=== PATIENT | male | born 1970 | race Caucasian/White ===

== ENCOUNTER 2021-02-26 12:57 | Outpatient (CLI) | payer MEDICARE, SELFPAY | END 2021-02-26 12:58 | disposition home or self-care (01) | PROVIDERS: PCP Emergency Medicine; Visit Provider Psychiatry & Neurology Neurology | DX: H90.3 Sensorineural hearing loss, bilateral (principal) | CPT/HCPCS: 92557; 92567 ==

== ENCOUNTER 2021-04-02 07:20 | Outpatient (CLI) | payer MEDICARE, SELFPAY ==
[2021-04-02 07:59] LABS: Basophils Absolute Auto 0.1 K/mm3 (0.0-0.1); Basophils Percent Auto 1.3 % (0.2-1.2); Eosinophils Absolute Auto 0.6 K/mm3 (0-0.3); Eosinophils Percent Auto 9.8 % (0-4.4); Hematocrit 37.5 % (42.0-52.0); Hemoglobin 12.3 g/dL (14.0-18.0); Immature Granulocyte Absolute 0.02 K/mm3 (0.00-0.031); Immature Granulocyte Percent A 0.3 % (0-0.5); Lymphocytes Percent Auto 39.2 % (18.3-44.2); Mean Corpuscular HGB Conc 32.8 g/dl (32-36); Mean Corpuscular Hemoglobin 28.9 pg (26-34); Mean Platelet Volume 10.7 fl (7.4-10.4); Monocytes Absolute Auto 0.6 K/mm3 (0.1-0.6); Neutrophils Absolute Auto 2.5 K/mm3 (1.3-6.7); Neutrophils Percent Auto 40.4 % (45.5-73.1); Platelet Count Result 220 k/mm3 (150-375); Red Blood Count 4.26 M/mm3 (4.6-6.20); Red Cell Distribution Width 12.5 % (11.5-14.5); White Blood Count 6.1 K/mm3 (4.5-10.0)
[2021-04-02 08:30] LABS: Alanine Aminotransferase 20 U/L (4-50); Albumin Level 4.5 g/dL (3.5-5.1); Alkaline Phosphatase 74 U/L (38-126); Anion Gap 11 mmol/L (8-16); Aspartate Amino Transferase 30 U/L (17-59); Bilirubin,Total 0.4 mg/dL (0.2-1.3); Blood Urea Nitrogen 24 mg/dL (9-20); Calcium 9.2 mg/dL (8.4-10.2); Carbon Dioxide 27 mmol/L (22-30); Chloride 100 mmol/L (98-107); Cholesterol 217 mg/dL (0-200); Estimated Glomerular Filt Rate > 60; Glucose 97 mg/dL (75-110); HDL Direct 48 mg/dL; Potassium 4.1 mmol/L (3.4-5.0); Sodium 138 mmol/L (137-145); Triglycerides 299 mg/dL (<150)
[2021-04-02 08:41] LABS: LDL Cholesterol Direct 86 mg/dL
[2021-04-02 08:57] LABS: Prostate Specific Antigen 0.3 ng/mL (< OR = 4.0)
== END 2021-04-02 07:21 | disposition home or self-care (01) ==
LOC: ANHLAB 07:23
PROVIDERS: PCP Emergency Medicine; Visit Provider Emergency Medicine
DX: R53.83 Other fatigue (principal); Z12.5 Encounter for screening for malignant neoplasm of prostate; Z13.6 Encounter for screening for cardiovascular disorders; Z13.220 Encounter for screening for lipoid disorders
CPT/HCPCS: 36415; 80053; 80061; 84153; 84443; 85025; G0103

== ENCOUNTER → 2021-05-22 01:05 | Outpatient (CLI) | payer MEDICARE, SELFPAY ==
[2021-05-22 22:45] LABS: SARS-CoV-2 RNA PCR Negative
== END ==
PROVIDERS: PCP Emergency Medicine; Visit Provider Emergency Medicine
DX: R51.9 Headache, unspecified (principal); R05 Cough; R09.89 Other specified symptoms and signs involving the circulatory and respiratory systems; B00.1 Herpesviral vesicular dermatitis; Z20.822 Contact with and (suspected) exposure to COVID-19
CPT/HCPCS: C9803; U0003; U0005

== ENCOUNTER 2021-11-30 17:42 | Observation (INO) | payer MEDICARE, MEDICAID, SELFPAY ==
[2021-11-30] VITALS (26 sets, daily range): BP systolic 137–159; BP diastolic 69–102; PULSE 63–79; RESP 16–20; TEMP 36.4–36.9; O2SAT 97–100; BMI 38.0
--- NOTE | ~2021-11-30 | CT_ITS ---
And less than 5 mm EXAMINATION: CT abdomen pelvis w con DATE: 11/30/2021 21:01 INDICATION: Right upper abdominal mass TECHNIQUE: Computed tomography (CT) of the abdomen and pelvis was performed with 100 mL Omnipaque-350 intravenous contrast. Automated exposure control and iterative reconstruction technique were employe d. The dose-length product was 1468.45 mGy-cm. COMPARISON: None FINDINGS: Mild discoid atelectasis in the lingula and left lower lobe. Heart size is normal. No pericardial or pleural effusion. Small sliding-type hiatal hernia. Prominent dilation the gallbladder which measures 16.3 x 6.1 x 6.6 cm with diffuse edematous wall thickening consistent with acute cholecystitis. 9 mm cyst in the left hepatic lobe. Mild intrahepatic biliary ductal dilation. Common bile duct is normal in caliber measuring 5 mm in maximal diameter. Fatty atrophy of the pancreas most prominent at the u ncinate process. Spleen and bilateral adrenal glands are normal. Bilateral renal cysts measuring 3.7 cm in the right kidney and 5 mm in the lower pole of the left kidney. No bowel obstruction. There is wall thickening along the sigmoid colon without significant surrounding inflammatory stranding and co uld not exclude a mild colitis. The appendix is not visualized. No pericecal inflammatory change to s uggest acute appendicitis. Bladder is normal. Small fat-containing right inguinal hernia. No free int raperitoneal gas or fluid. No pathologically enlarged abdominal or pelvic lymphadenopathy. Small betzaida ngioma at L4. 8 mm sclerotic lesion at the basicervical left femur with appearance suggesting chondro id matrix in an enchondroma. IMPRESSION: 1. Acute cholecystitis. 2. Wall thickening along the distal sigmoid colon without surrounding inflammatory stranding equivoca l for colitis. 3. Small fat-containing right inguinal hernia. 4. 8 mm sclerotic lesion at the proximal left femur with appearance suggestive but not diagnostic of an enchondroma. No other suspicious bone lesions identified. Could consider bone scan for further miroslava luation particularly if patient has any history of prior malignancy. Reviewed, dictated and finalized at location A. E UP IMPRESSION: 1. Acute cholecystitis. 2. Wall thickening along the distal sigmoid colon without surrounding inflammat ory stranding equivocal for colitis. 3. Small fat-containing right inguinal hernia. 4. 8 mm sclerotic lesion at the proximal left femur with appearance suggestive but not diagnostic of an enchondroma. No other suspicious bone lesions identifi ed. Could consider bone scan for further evaluation particularly if patient has any history of prior malignancy.
--- NOTE | ~2021-11-30 | US_ITS ---
EXAMINATION: US abdomen limited EXAM DATE: 12/01/2021 09:38 INDICATION: acute cholecystitis, rule out gallstone. TECHNIQUE: Multiple grayscale and Doppler images of the abdomen right upper quadrant were obtained (b y a technologist who performed the scan) and subsequently reviewed. Correlation is made to CT . FINDINGS: The pancreatic head and body are normal in appearance. The pancreatic tail is not visualized. The l iver has normal echogenicity and contour. There are no focal liver lesions identified. There is no evidence of intrahepatic biliary duct dilation. Portal venous flow was seen in the hepatopedal, nor mal direction and has normal Doppler waveform. No right-sided hydronephrosis. Common bile duct measures 6 mm, which is normal. The gallbladder is distended and there are multiple gallstones. The gallbladder wall is edematous, thickened. Sonographic Prince's sign was demonstrated. No pericholecystic fluid. IMPRESSION: Acute cholecystitis. Cholelithiasis. Reviewed, dictated and finalized at location A. 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
--- NOTE | ~2021-11-30 | XR_ITS ---
EXAMINATION: XR cholangiogram surg 1st inj DATE: 12/01/2021 14:48 INDICATION: Laparoscopic cholecystectomy TECHNIQUE: 75 fluoroscopic images of the right upper quadrant were obtained during intraoperative cho langiography performed by the surgeon. I was not present in the operating room. Fluoroscopy exposure time was 15.9 seconds. COMPARISON: None. FINDINGS: No stricture or filling defect of the common bile duct is identified. The common bile duct appears to be normal in caliber. IMPRESSION: 1. No stricture or filling defect identified in the common bile duct. This was communicated to Dr. Cindy etienne in the operating room at 1443 hours on 12/01/2021. Reviewed, dictated and finalized at location B. SLIDE MACHINE SETTER IMPRESSION: 1. No stricture or filling defect identified in the common bile duct. This was communicated to Dr. Miller in the operating room at 1443 hours on 12/01/2021.
[2021-11-30 18:01] LABS: Basophils Absolute Auto 0.1 K/mm3 (0.0-0.1); Basophils Percent Auto 0.4 % (0.2-1.2); Eosinophils Absolute Auto 0.1 K/mm3 (0-0.3); Eosinophils Percent Auto 0.3 % (0-4.4); Hematocrit 44.4 % (42.0-52.0); Hemoglobin 14.6 g/dL (14.0-18.0); Immature Granulocyte Absolute 0.05 K/mm3 (0.00-0.031); Immature Granulocyte Percent A 0.3 % (0-0.5); Lymphocytes Percent Auto 6.5 % (18.3-44.2); Mean Corpuscular HGB Conc 32.9 g/dl (32-36); Mean Corpuscular Hemoglobin 29.2 pg (26-34); Mean Corpuscular Volume 88.8 fl (80-100); Mean Platelet Volume 10.8 fl (7.4-10.4); Monocytes Percent Auto 6.4 % (2.6-8.5); Neutrophils Absolute Auto 13.2 K/mm3 (1.3-6.7); Neutrophils Percent Auto 86.1 % (45.5-73.1); Platelet Count Result 270 k/mm3 (150-375); Red Cell Distribution Width 13.2 % (11.5-14.5); White Blood Count 15.4 K/mm3 (4.5-10.0)
[2021-11-30 20:29] LABS: Alanine Aminotransferase 21 U/L (4-50); Alkaline Phosphatase 103 U/L (38-126); Anion Gap 8 mmol/L (8-16); Aspartate Amino Transferase 26 U/L (17-59); Bilirubin,Total 0.8 mg/dL (0.2-1.3); Blood Urea Nitrogen 16 mg/dL (9-20); Calcium 9.1 mg/dL (8.4-10.2); Carbon Dioxide 27 mmol/L (22-30); Chloride 102 mmol/L (98-107); Estimated CRCL calculation 135 ml/min; Estimated Glomerular Filt Rate > 60; Glucose 122 mg/dL (65-110); Lipase 53 U/L (23-300); Potassium 4.1 mmol/L (3.4-5.0); Sodium 137 mmol/L (137-145)
--- NOTE | 2021-11-30 20:31 | ED.ABDPAIN ---
HPI - Abdominal Pain General Chief Complaint: Abdominal Pain Stated Complaint: abdominal pain Time Seen by Provider: 11/30/21 20:07 Source: patient and RN notes reviewed Mode of arrival: ambulatory Limitations: no limitations History of Present Illness HPI narrative: This is a 51 year old male who presents for evaluation of right upper abdominal pain. Patient states he woke up with pain 4 am this morning. His pain is located across his upper abdomen and it worsened when he twisted. He states he felt a tender knot to right upper abdomen since stretching. His pain has been constant and it radiates to his back. He denies associated nausea, vomiting, fever or chills. He has noticed dark color urine but denies dysuria. He denies having gallbladder disease or having similar pain in the past. His pain is 10/10. He takes oxycodone 5 mg for chronic back and left leg pain. Related Data Home Medications Medication Instructions Recorded Confirmed acetaminophen 500 mg tablet See Rx Instructions .ROUTE .COMPLEX 02/09/21 08/17/21 aspirin 81 mg tablet,delayed 81 mg PO DAILY 02/09/21 12/01/21 release oxycodone-acetaminophen 1 tablet PO QID PRN 12/01/21 12/01/21 Allergies Allergy/AdvReac Type Severity Reaction Status Date / Time ibuprofen Allergy Unknown UNKNOWN Verified 09/15/21 13:49 duloxetine Allergy Unknown Verified 09/15/21 13:49 naproxen Allergy Unknown Verified 09/15/21 13:49 Review of Systems Review of Systems: All systems reviewed & are unremarkable except as noted in HPI and below PMFSH Past Medical History Medical History (Updated 12/01/21 @ 06:06 by Rosalia Perdomo MD) Blurred vision Cataract (~2012) Cataracts, bilateral Chicken pox Chronic back pain Surgical History Surgical History H/O knee surgery (~1994) H/O knee surgery (~2012) History of ankle surgery (~1996) History of appendectomy (~1979) Family History Family History Father No problems noted. Mother No problems noted. Mother Family history of thyroid disease Father Family history of type 2 diabetes mellitus Other Cerebrovascular accident Diabetes mellitus Family history of alcoholism Hypertension Social History Social History Social History: Patient Drinks 1 can of soda daily. Smoking status: Never smoker Smoking end date: 09/25/00 Alcohol intake: never Substance use: never Substance use type: does not use Additional occupation/education comments: [employer] Gender identity (if verbalized by the patient): Male Spiritual care concerns: No Exam Const: General: alert Nutritional Appearance: obese Orientation/consciousness: patient oriented x3 Eyes: EOM: EOMs intact bilaterally Resp: Effort & Inspection: normal respiratory effort and no retractions Auscultation: clear to auscultation bilaterally GI: Inspection: distended GI Palp: Yes Soft to palpation, Yes Tenderness to palpation present (GI), Yes Guarding due to palpation present (GI), No Rigid due to palpation and Yes Palpable mass present (right upper abdomen) Auscultation: normal bowel sounds : General: Yes no CVA tenderness Skin: General skin exam: normal color Rashes: no rashes Neuro: General: patient oriented x3, moves all extremities and CN's II-XI intact bilaterally Extrem: General: normal to inspection Psych: Mental Status: mental status grossly normal Affect: normal affect Course Reevaluation(s) Reevaluation #1: I discussed with patient findings of acute cholecystitis and he will be admitted and started on antibiotics. Date: 12/01/21 Time: 22:00 Consultations Consultation #1: I Discussed case with Dr. Miller. He agrees to admit patient to his service for acute cholecystitis. Will order US for am. He states to place pat
[2021-11-30] MEDS: SODIUM CHLORIDE 0.9% IV 1,000 ML 999 ML IV CONT (20:33)
[2021-11-30] MEDS: ONDANSETRON INJ 4 MG/2 ML VIAL IV PUSH (20:33)
[2021-11-30] MEDS: HYDROmorphone HCL INJ (*CRX) 1 MG/ML SYR IV PUSH ×2 (20:33→21:45)
[2021-11-30 21:23] LABS: Add Urine Microscopic? YES; Appearance Urine Clear (Clear); Bilirubin Urine Negative (Negative); Blood Urine 2+ (Negative); Color Urine Yellow (Yellow); Glucose Urine UA Negative (Negative); Ketones Urine Trace mg/dL (Negative); Leukocyte Esterase Ur Negative LEU/UL (Negative); Mucus Urine Rare /lpf; Nitrate Urine Negative (Negative); Protein Urine Negative (Negative); Squamous Epithelial Cell Urine Rare /hpf (Few); Urobilinogen Urine Negative mg/dL (<2.0); WBC Urine 0-3 /hpf
[2021-11-30 21:24] LABS: Specific Grav Ur 1.043 (1.001-1.035)
[2021-11-30] MEDS: SODIUM CHLORIDE 0.9% IV 1,000 ML 125 ML IV CONT (22:41)
[2021-11-30] MEDS: MORPHINE SULFATE (*CRX) 4 MG/ML INJ 6 MG IV PUSH (22:45)
[2021-11-30 23:06] LABS: SARS-CoV-2 RNA PCR Negative
[2021-12-01] VITALS (12 sets, daily range): BP systolic 114–144; BP diastolic 71–92; PULSE 68–99; RESP 12–21; TEMP 36.5–37; O2SAT 93–100; BMI 38.0
--- NOTE | 2021-12-01 00:26 | ADMGEN ---
This patient, Leia Jimenez Sr., was admitted to 3 Med Surg Room 317-01. Patient/family oriented to hospital policies and general routines including ID bracelet, bed and alarms, visiting hours, pain management, procedures, bathroom and other care routines, personal items, smoking policy, room service/diet, and visiting hours. Information on how to activate the Rapid Response Team has been discussed. Patient/Family are encouraged to report perceived risks to care and to ask questions if they do not understand what they are told or what they should do.
[2021-12-01] MEDS: MORPHINE SULFATE (*CRX) 4 MG/ML INJ 6 MG IV PUSH ×5 (01:03→09:50)
[2021-12-01] MEDS: MELATONIN 5 MG TABLET PO ×2 (01:03→20:08)
[2021-12-01] MEDS: SODIUM CHLORIDE 0.9% IV 1,000 ML 125 ML IV CONT (06:27)
[2021-12-01 06:31] LABS: Alanine Aminotransferase 199 U/L (4-50); Alkaline Phosphatase 99 U/L (38-126); Anion Gap 6 mmol/L (8-16); Aspartate Amino Transferase 284 U/L (17-59); Basophils Percent Auto 0.4 % (0.2-1.2); Blood Urea Nitrogen 10 mg/dL (9-20); Calcium 8.1 mg/dL (8.4-10.2); Carbon Dioxide 26 mmol/L (22-30); Chloride 103 mmol/L (98-107); Eosinophils Absolute Auto 0.2 K/mm3 (0-0.3); Eosinophils Percent Auto 2.2 % (0-4.4); Estimated CRCL calculation 119 ml/min; Estimated Glomerular Filt Rate > 60; Glucose 128 mg/dL (65-110); Hematocrit 39.7 % (42.0-52.0); Hemoglobin 13.2 g/dL (14.0-18.0); Immature Granulocyte Absolute 0.03 K/mm3 (0.00-0.031); Immature Granulocyte Percent A 0.3 % (0-0.5); Lipase 47 U/L (23-300); Lymphocytes Absolute Auto 0.71 K/mm3 (0.9-3.2); Mean Corpuscular HGB Conc 33.2 g/dl (32-36); Mean Corpuscular Hemoglobin 29.2 pg (26-34); Mean Corpuscular Volume 87.8 fl (80-100); Monocytes Absolute Auto 1.1 K/mm3 (0.1-0.6); Monocytes Percent Auto 12.4 % (2.6-8.5); Neutrophils Absolute Auto 6.8 K/mm3 (1.3-6.7); Neutrophils Percent Auto 76.7 % (45.5-73.1); Platelet Count Result 199 k/mm3 (150-375); Potassium 3.5 mmol/L (3.4-5.0); Red Blood Count 4.52 M/mm3 (4.6-6.20); Red Cell Distribution Width 13.1 % (11.5-14.5); Sodium 135 mmol/L (137-145); White Blood Count 8.9 K/mm3 (4.5-10.0)
--- NOTE | 2021-12-01 07:53 | PM.IMHP ---
H&P: HPI History of Present Illness Date/Time: 12/01/21 07:53 This is a 51 y/o White male who presented last evening at the [facility] for evaluation of right upper quadrant abdominal pain. Patient states he woke up with the abdominal pain at4 am in the morning on 11/30. His pain was located across his upper abdomen and it worsened when he twisted. He states he felt a tender knot in the right upper abdomen since stretching. he states today to me that this is still where his pain is and it is very tender to touch. (CT scan with workup in the ED did show apparent hydrops of the gallbladder with thickening of the wall.) His pain has been constant Since it started and it radiates to his right mid back. He denies associated nausea, vomiting, fever or chills. He has noticed dark color urine but denies dysuria. He admits now to having similar pain in the past. states he had 1 episode in August and went to [facility] with this. ( Review of his outpatient chart this morning reveals that the CT scan at [facility] did suggest hydrops of the gallbladder but did not come right out and say that he had gallstones. It did however recommend an outpatient ultrasound which has not been done that I can see. Patient also states that he has not had any further workup for that episode). in the ER last night his his pain was 10/10. he now states that it has improved some but does not completely go away with periodic morphine injections. He takes oxycodone 5 mg for chronic back and left leg pain Now at home and states that he does see a pain medicine doctor in [place] for problems with L5-S1 and resultant sciatica leading to a left foot drop. Chief Complaint: upper abdominal pain Review of Systems Review of Systems: All systems reviewed & are unremarkable except as noted in HPI and below (HPI) Constitutional: Constitutional: Reports as per HPI, Denies chills and Denies fever(s) Eyes: Eyes: Reports no additional eye complaints ENT: Reports Normal hearing present and Denies dizziness Cardiovascular: Cardiovascular: Reports no additional cardiovascular complaints, Denies chest pain and Denies irregular heart rhythm Respiratory: Respiratory: Reports no additional respiratory complaints Gastrointestinal: Gastrointestinal: Reports as per HPI Comments: Patient relates to previous episodes of similar pain has now which were short-lived 2-3 hours in duration. Genitourinary: Genitourinary: Denies hematuria Musculoskeletal: Musculoskeletal: Denies back pain Comments: Pt has issues with his Lt. leg. 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 Integumentary/Breasts: Skin/Breast: Reports system reviewed and no additional complaints, except as docu Neurologic: Reports Normal hearing present, Denies Abnormal speech present, Denies confusion, Denies dizziness and Reports radicular pain ( Left-sided sciatica come) Comments: patient has anterior tibial muscle wasting and footdrop on the left Psychiatric: Psychiatric: Reports no additional psychiatric complaints and Denies confusion Comments: apparently had swelling and some nausea associated with Cymbalta ( this is on his allergy list). Endocrine: Endocrine: Reports no additional endocrine complaints Hematologic/Lymphatic: Hematologic/Lymphatic: Denies easy bleeding and Denies easy bruising Allergic/Immunologic: Allergic/Immunologic: Reports no additional allergic/immunologic complaints PMF Past Medical History Medical History Blurred vision Cataract (~2012) Cataracts, bilateral Chicken pox Chronic back pain Surgical History Surgical History H/O knee surgery (~1994) H/O knee surgery (~2012) History of ankle surgery (~1996) History of appendectomy (~1979) Family History Family History (Updated 12/01/21 @ 09:27 by Shahriar Miller MD) Father Cholecystitis
[2021-12-01] MEDS: CHLORHEXIDINE GLUCONATE 4% SOL 120 ML BTL 1 APPLIC TOPICAL (11:07)
--- NOTE | 2021-12-01 11:52 | WPDANESEPPF ---
Anes - Initial Pre Proc Eval Procedure: Operation Date: 12/01/21 13:00 Proposed Procedures p Laparoscopic Cholecystectomy, Possible Intra Operative Cholangiogram - Shahriar Miller MD Date/Time: 12/01/21 11:52 Surgeon: Shahriar Miller MD Pre Op Diagnosis: acute cholecystitis Patient Data Age: 51 Gender: M Height: 1.75 m Weight: 116.7 kg Last Vital Signs Temp 36.5 C 12/01/21 05:50 Pulse 83 12/01/21 05:50 Resp 16 12/01/21 05:50 BP 137/85 12/01/21 05:50 Pulse Ox 100 12/01/21 05:50 Allergies Allergy/AdvReac Type Severity Reaction Status Date / Time ibuprofen Allergy Unknown UNKNOWN Verified 09/15/21 13:49 duloxetine Allergy Unknown Verified 09/15/21 13:49 naproxen Allergy Unknown Verified 09/15/21 13:49 Home Medications Medication Instructions Recorded Confirmed Type acetaminophen 500 mg tablet See Rx Instructions .ROUTE .COMPLEX 02/09/21 08/17/21 History aspirin 81 mg tablet,delayed 81 mg PO DAILY 02/09/21 12/01/21 History release oxycodone-acetaminophen 1 tablet PO QID PRN 12/01/21 12/01/21 History Laboratory Tests 11/30/21 11/30/21 11/30/21 17:55 20:15 21:10 WBC 15.4 K/mm3 H K/mm3 (4.5-10.0) RBC 5.00 M/mm3 M/mm3 (4.6-6.20) Hgb 14.6 g/dL g/dL (14.0-18.0) Hct 44.4 % % (42.0-52.0) MCV 88.8 fl fl (80-100) MCH 29.2 pg pg (26-34) MCHC 32.9 g/dl g/dl (32-36) RDW 13.2 % % (11.5-14.5) Plt Count 270 k/mm3 k/mm3 (150-375) MPV 10.8 fl H fl (7.4-10.4) Immature Gran % (Auto) 0.3 % % (0-0.5) Neut % (Auto) 86.1 % H % (45.5-73.1) Lymph % (Auto) 6.5 % L % (18.3-44.2) [place] % (Auto) 6.4 % % (2.6-8.5) Eos % (Auto) 0.3 % % (0-4.4) Baso % (Auto) 0.4 % % (0.2-1.2) Lymph # (Auto) 1.00 K/mm3 K/mm3 (0.9-3.2) [place] # (Auto) 1.0 K/mm3 H K/mm3 (0.1-0.6) Eos # (Auto) 0.1 K/mm3 K/mm3 (0-0.3) Baso # (Auto) 0.1 K/mm3 K/mm3 (0.0-0.1) Abs Immat Gran (auto) 0.05 K/mm3 H K/mm3 (0.00-0.031) Absolute Neuts (auto) 13.2 K/mm3 H K/mm3 (1.3-6.7) Absolute Nucleated RBC 0.0 K/mm3 K/mm3 (0.0-0.012) Nucleated RBC % 0.0 % % (0.0-0.2) Sodium 137 mmol/L mmol/L (137-145) Potassium 4.1 mmol/L mmol/L (3.4-5.0) Chloride 102 mmol/L mmol/L (98-107) Carbon Dioxide 27 mmol/L mmol/L (22-30) Anion Gap 8 mmol/L mmol/L (8-16) BUN 16 mg/dL mg/dL (9-20) Creatinine 0.70 mg/dL mg/dL (0.7-1.3) Estim Creat Clear Calc 135 ml/min ml/min Estimated GFR > 60 (59 - ) Glucose 122 mg/dL H mg/dL (65-110) Calcium 9.1 mg/dL mg/dL (8.4-10.2) Total Bilirubin 0.8 mg/dL mg/dL (0.2-1.3) AST 26 U/L U/L (17-59) ALT 21 U/L U/L (4-50) Alkaline Phosphatase 103 U/L U/L (38-126) Total Protein 8.0 g/dL g/dL (6.3-8.2) Albumin 5.0 g/dL g/dL (3.5-5.1) Lipase 53 U/L U/L (23-300) Urine Color Yellow (Yellow) Urine Appearance Clear (Clear) Urine pH 6.0 (5.0-9.0) Ur Specific [place] 1.043 H (1.001-1.035) Urine Protein Negative mg/dL mg/dL (Negative) Urine Glucose (UA) Negative mg/dL mg/dL (Negative) Urine Ketones Trace mg/dL mg/dL (Negative) Ur Blood (Man) 2+ H (Negative) Urine Nitrate Negative (Negative) Urine Bilirubin Negative (Negative) Urine Urobilinogen Negative mg/dL mg/dL (<2.0) Leukocyte Esterase Rfl Negative KEVIN/UL KEVIN/UL (Negative) Urine RBC 11-20 /hpf H /hpf (0-2) Urine WBC 0-3 /hpf /hpf Ur Squamous Epith Cells Rare /hpf /hpf (Few) Urine Mucus Rare /lpf /lpf SARS-CoV-2 R
--- NOTE | 2021-12-01 11:53 | PC.NURSE ---
1150 off floor for surgery.
--- NOTE | 2021-12-01 12:26 | WPDHPUPDATE1 ---
History and Physical Update Update Date/Time: 12/01/21 12:26 History and Physical has been reviewed, including an updated exam of the patient. There are NO changes in the patient's condition. Risks, benefits, and alternatives have been discussed and questions answered. Patient agrees to proceed with procedure.
[2021-12-01] MEDS: LACTATED RINGERS 1,000 ML 30 ML IV CONT ×2 (12:33→16:29)
--- NOTE | 2021-12-01 16:47 | W.PM.PROC2 ---
Procedure Note - Detailed Date of Procedure 12/01/21 Pre-op Diagnosis 1. acute cholecystitis with cholelithiasis 2. A symptomatic right inguinal hernia Post-op Diagnosis Same Procedure Performed Laparoscopic cholecystectomy with intraoperative cholangiogram Surgeon Shahriar Miller MD Drill Sergeant Antonieta MASTERSON.OR Ticket Printer And Tagger Anesthesia General Indications Please see admission history and physical. This outlines the indications well. Patient developed severe epigastric and right upper quadrant pain approximately 36 hours prior to OR. He had a CT scan suggesting acute cholecystitis but no mention of cholelithiasis. This morning he had a ultrasound confirming acute cholecystitis with cholelithiasis. Therefore, the risks benefits possible complications of a laparoscopic cholecystectomy with intraop cholangiogram since his liver function tests also went up some were discussed with him and his and they seemed understand wished to proceed. Findings Very large acutely inflamed gallbladder with suspected hydrops. Description of Procedure Procedure Details: Patient was seen preoperatively in the holding area and risks, benefits and alternatives confirmed. Patient was taken to the operating room and general anesthesia was induced. A time out was then preformed with the surgery team confirming patient and site of surgery. The abdomen was prepped and draped in the usual sterile fashion. Incision was made just at beth upper end of the umbilicus transversely to expose a small 5 mm fascial defect. Two stay sutures of O- Vicryl were used to elevate the mid-line fascia beneath the umbilicus and a small incision was made under direct vision. The peritoneum was entered. The 12 mm Reveles cannula was introduced under direct vision into the preitoneum. First under low flow and then under high flow the abdomen was insufflated with carbon dioxide never exceeding a pressure of 14. Three 5 mm trocars were then introduced under direct vision. The following trocars were introduced under direct vision: a 12 mm in the epigastrium and two 5 mm trocars along the right costal margin. There were significant adhesions of the omentum to the underside of the gallbladder and to the anterior abdominal wall just inferior to the gallbladder. These were taken down with blunt and sharp dissection. Bovie cautery was used for hemostasis. Because the gallbladder was so enlarged prior to doing much else we used a long trocar needle and I punctured the gallbladder on his upper and and suction 15 cc of light yellow bile from the gallbladder that was sent for culture (Gram stain, aerobic & anaerobic C&S) The gall bladder was then grasped and the cystic duct and artery were dissected free and I carefully identified a window of safety with only two other structures in the area being the cystic duct and the cystic artery. It should be mentioned that the time it took to get to this visualization was least an hour of dissection through difficult circumstances with difficult visualization and dissection through somewhat inflamed edematous tissues. Structures however were able to be visualized well by the end of the dissection. I then used a 10 mm endo-clip steam trap man to place 2 clips on the patient's side 1 on the gallbladder side on the cystic artery and just one clip on the gallbladder side of the cystic duct. A small hole was made in the cystic duct with endoshears and a cholagio-cath introduced. This was held in place with a single 10 mm clip. A cholangiogram was obtained revealing free flow into the cystic duct, common bile duct, common hepatic, right and left hepatic ducts with free flow into the duodenum with no filling defects in the intra nor extrahepatic biliary tree and no dilation. The catheter was removed and the cystic duct was clipped with a 10 mm endoclip-steam trap man placing 2 clips on the patient's side of the cystic duct. The cystic duct was then transected. The cystic artery was also transected a
[2021-12-01] MEDS: fentaNYL CITRATE INJ (*CRX) 100 MCG/2 ML VIAL 25 MCG IV PUSH ×3 (17:07→17:30)
--- NOTE | 2021-12-01 18:03 | PC.NURSE ---
1800 pt back in room via bed from surgery.
[2021-12-01] MEDS: oxyCODONE HCL (*CRX) 5 MG TAB IR 10 MG PO (18:50)
[2021-12-01] MEDS: SENNA/DOCUSATE SODIUM TABLET 2 TAB PO (20:08)
[2021-12-01] MEDS: BENZOCAINE/MENTHOL (*BKC) 18 EA LOZENGE 1 LOZENGE PO (21:11)
[2021-12-02] MEDS: oxyCODONE HCL (*CRX) 5 MG TAB IR 10 MG PO ×3 (00:10→11:40)
[2021-12-02 02:17] VITALS: O2SAT 95
[2021-12-02 03:47] VITALS: BP 121/74; PULSE 80; RESP 18; TEMP 36.6; O2SAT 93
[2021-12-02] MEDS: SODIUM CHLORIDE 0.9% IV 1,000 ML 75 ML IV CONT (04:55)
[2021-12-02 06:04] LABS: Hematocrit 37.3 % (42.0-52.0); Hemoglobin 12.1 g/dL (14.0-18.0); Mean Corpuscular HGB Conc 32.4 g/dl (32-36); Mean Corpuscular Hemoglobin 28.7 pg (26-34); Mean Corpuscular Volume 88.6 fl (80-100); Mean Platelet Volume 11.3 fl (7.4-10.4); Platelet Count Result 202 k/mm3 (150-375); Red Blood Count 4.21 M/mm3 (4.6-6.20); Red Cell Distribution Width 13.1 % (11.5-14.5); White Blood Count 10.8 K/mm3 (4.5-10.0)
[2021-12-02 06:08] LABS: Alanine Aminotransferase 244 U/L (4-50); Albumin Level 4.1 g/dL (3.5-5.1); Alkaline Phosphatase 125 U/L (38-126); Anion Gap 7 mmol/L (8-16); Aspartate Amino Transferase 156 U/L (17-59); Bilirubin,Total 1.1 mg/dL (0.2-1.3); Blood Urea Nitrogen 11 mg/dL (9-20); Calcium 8.9 mg/dL (8.4-10.2); Carbon Dioxide 27 mmol/L (22-30); Chloride 104 mmol/L (98-107); Estimated CRCL calculation 106 ml/min; Estimated Glomerular Filt Rate > 60; Glucose 118 mg/dL (65-110); Potassium 3.9 mmol/L (3.4-5.0); Sodium 138 mmol/L (137-145)
[2021-12-02 07:47] VITALS: BP 130/84; PULSE 83; RESP 19; TEMP 36.4; O2SAT 94
[2021-12-02 08:33] VITALS: O2SAT 96
--- NOTE | 2021-12-02 09:27 | PM.DS ---
DS: Admitting Diagnosis Discharge Date 12/02/2021 Admitting Diagnosis acute cholecystitis with cholelithiasis DS: Discharge Diagnosis Discharge Diagnosis (1) Cholecystitis, acute with cholelithiasis: Onset Date: ~11/2021 Code(s): K80.00 - Calculus of gallbladder with acute cholecystitis without obstruction Status: Acute Assessment and Plan: This was the main reason for the patient's admission. Ultrasound confirmed acute cholecystitis with cholelithiasis. He was taken to the operating room the day this was discovered for urgent cholecystectomy. Cholangiogram was performed because of elevated liver function tests and the possibility of a stone passing into the common duct. IOC was negative for any common duct stones. Because of his acute infection culture was sent when we aspirated bile from the gallbladder at the time of surgery. Results of this C&S are still not back. Patient is recovering well postop day 1 and will be seen in the office in 2 weeks. He received several doses of IV antibiotics following the procedure and is afebrile so I am not planning to continue any a antibiotics upon discharge. (2) Chronic back pain: Onset Date: Unknown Code(s): M54.9 - Dorsalgia, unspecified; G89.29 - Other chronic pain Status: Acute Assessment and Plan: Patient has apparently had a chronic issue with the L5-S1 this level with a chronic left footdrop. He has seen pain clinic physician for this continuing chronic pain. He and I agreed that we would double the dose of his oxycodone / acetaminophen for 3 days then dropped back to what he usually takes which is 1 5/325 oxycodone/acetaminophen once every 6 hours for his sciatica and low back pain. He will then follow up with his pain medicine doctor for continued care. (3) Anxiety: Onset Date: Unknown Code(s): F41.9 - Anxiety disorder, unspecified Status: Acute Assessment and Plan: Patient was on pain medications throughout his stay here in the hospital. He did not specifically display any serious episodes of anxiety during his hospital stay. He will resume any medications that he was on for this as an outpatient. (4) Right inguinal hernia: Onset Date: ~11/30/21 Code(s): K40.90 - Unilateral inguinal hernia, without obstruction or gangrene, not specified as recurrent Status: Acute Assessment and Plan: This was small and asymptomatic. This was noted as a incidental finding on his CT scan of the abdomen and pelvis at the time of his ED visit. Will discuss this more with him on the postop visit. DS: Summary Hospital Course Reason for hospitalization: Acute cholecystitis with cholelithiasis and abdominal pain Hospital Course: The acute cholecystitis with cholelithiasis was the main reason for the patient's admission. Ultrasound confirmed acute cholecystitis with cholelithiasis. He was taken to the operating room the day this was discovered for urgent cholecystectomy. Cholangiogram was performed because of elevated liver function tests and the possibility of a stone passing into the common duct. IOC was negative for any common duct stones. Because of his acute infection culture was sent when we aspirated bile from the gallbladder at the time of surgery. Results of this C&S are still not back. Patient is recovering well postop day 1 and will be seen in the office in 2 weeks. He received several doses of IV antibiotics following the procedure and is afebrile so I am not planning to continue any a antibiotics upon discharge. Status at Discharge Cognitive/behavioral status at discharge: normal Functional status at discharge: independent ambulation Overall status at discharge: patient is not back to baseline ( He will need to be cautious with core body exercises and any straining x8 weeks.) Time Spent with Patient Time attestation: Total time spent providing and/or coordinating discharge services: Time
--- NOTE | 2021-12-02 10:11 | WPDANESPN ---
Anes - Prog Note Post-Op Date/Time: 12/02/21 10:11 Cardiovascular status: normal Respiratory status: normal Airway patency: baseline Mental status: baseline Post-Op hydration status: normal Vital Signs: Last Vital Signs Temp 36.4 C L 12/02/21 07:47 Pulse 83 12/02/21 07:47 Resp 19 12/02/21 07:47 BP 130/84 12/02/21 07:47 Pulse Ox 96 12/02/21 08:33 Pain Score (VAS): 0 I/O: Intake & Output 12/01/21 12/02/21 12/02/21 23:59 07:59 15:59 Intake Total 1999 950 120 Balance 1999 950 120 Laboratory Tests 12/02/21 05:32 12/02/21 05:32 12/02/21 12/02/21 05:32 05:32 WBC 10.8 H RBC 4.21 L Hgb 12.1 L Hct 37.3 L MCV 88.6 MCH 28.7 MCHC 32.4 RDW 13.1 Plt Count 202 MPV 11.3 H Sodium 138 Potassium 3.9 Chloride 104 Carbon Dioxide 27 Anion Gap 7 L BUN 11 Creatinine 0.90 Estim Creat Clear Calc 106 Estimated GFR > 60 Glucose 118 H Calcium 8.9 Total Bilirubin 1.1 AST 156 H ALT 244 H Alkaline Phosphatase 125 Total Protein 7.0 Albumin 4.1 Post-procedural complaints: none Patient Feedback: Patient satisfied with anesthetic care.
== END 2021-12-02 12:32 | disposition home or self-care (01) ==
LOC: ANHED 21:03 → ANH3MEDSUR 23:10
PROVIDERS: Emergency Medicine; Admitting Provider Surgery; Emergency Provider General Practice; Visit Provider Surgery
PROC: 0FT44ZZ Resection of Gallbladder, Percutaneous Endoscopic Approach (ICD-10-PCS; CPT 47562; principal; 2021-12-01 13:00)
DX: K80.12 Calculus of gallbladder with acute and chronic cholecystitis without obstruction (principal); M54.9 Dorsalgia, unspecified; M79.605 Pain in left leg; G89.29 Other chronic pain; F41.9 Anxiety disorder, unspecified; F11.20 Opioid dependence, uncomplicated; K40.90 Unilateral inguinal hernia, without obstruction or gangrene, not specified as recurrent; Z20.822 Contact with and (suspected) exposure to COVID-19
CPT/HCPCS: 47563; 36415; 74177; 74300; 76705; 80053; 81001; 83690; 85025; 85027; 87070; 87075; 87205; 88304; 96361; 96365; 96366; 96367; 96375; 96376; 99285; A9270; C1713; C9803; G0378; J0131; J1100; J1170; J2250; J2270; J2405; J2543; J2704; J2710; J3010; J7030; J7120; Q9966; Q9967; U0003; U0005

== ENCOUNTER 2021-12-04 10:14 | Inpatient (IN) | payer MEDICARE, MEDICAID, SELFPAY ==
[2021-12-04] VITALS (13 sets, daily range): BP systolic 132–168; BP diastolic 86–110; PULSE 76–104; RESP 15–22; TEMP 36.5–37.4; O2SAT 92–100; BMI 38.7
--- NOTE | ~2021-12-04 | XR_ITS ---
EXAMINATION: XR chest 2V DATE: 12/04/2021 10:40 INDICATION: Epigastric abdominal pain. Constipation. TECHNIQUE: Frontal and lateral views of the chest were obtained. COMPARISON: CT abdomen and pelvis 11/30/2021 FINDINGS: The lung volumes are small. There is mild atelectasis at the lung bases. No pleural effusio n or pneumothorax. The heart size is normal. Surgical clips in the right upper quadrant are likely fr om cholecystectomy. IMPRESSION: 1. Small lung volumes with mild atelectasis at the lung bases. Reviewed, dictated and finalized at location A. E CARE NURSE
--- NOTE | ~2021-12-04 | CT_ITS ---
EXAMINATION: CT guide absc cath placement DATE: 12/04/2021 16:08 INDICATION: Right upper quadrant abscess. TECHNIQUE: The procedure including the risks, benefits, and alternatives was discussed with the patie nt. Risks discussed included bleeding and infection. The patient understood the risks and benefits an d agreed to proceed. The skin overlying the abdomen was prepped and draped in usual sterile fashion. Anesthetic was administered with 1% lidocaine subcutaneously. An 18 gauge trochar needle was inserte d into the right upper quadrant abscess with CT guidance. The needle was exchanged over a wire for 6 Australian, 8 Australian, and 9 Australian dilators and then for an 8.5 Australian pigtail catheter. The catheter was stitched to the skin, and a sterile dressing was applied. The mA was adjusted according to patient s ize. Iterative reconstruction technique was employed. The dose-length product was 364.38 mGy-cm. Ther e were no immediate complications. FINDINGS: CT images demonstrate the catheter within the right upper quadrant abscess. 10 mL fluid was aspirated for testing. IMPRESSION: 1. Successful CT-guided right upper quadrant abscess drainage. 2. 10 mL reddish bile was sent for aerobic and anaerobic cultures. Reviewed, dictated and finalized at location A. 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
--- NOTE | ~2021-12-04 | CT_ITS ---
EXAMINATION: CT abdomen pelvis w con DATE: 12/04/2021 11:33 INDICATION: Epigastric abdominal pain. Postop. TECHNIQUE: Computed tomography (CT) of the abdomen and pelvis was performed with 100 mL Omnipaque 350 intravenous contrast. Automated exposure control and iterative reconstruction technique were employe d. The dose-length product was 1738.56 mGy-cm. COMPARISON: CT abdomen and pelvis 11/30/2021 FINDINGS: The visualized portions of the lung bases demonstrate atelectasis in all lobes, worst in th e lower lobes. No pleural effusion. The heart size is normal. No pericardial effusion. There are cyst s in the liver measuring up to 9 mm. There are changes of cholecystectomy. The spleen, pancreas, and adrenal glands are normal. There are cysts in the kidneys measuring up to 3.5 cm on the right. There is a right inguinal hernia containing fat. There are no dilated loops of bowel. There is fat strandin g and soft tissue gas at the umbilicus, consistent with recent surgery. There is an 8.2 x 4.7 cm flui d collection in the gallbladder fossa. There is a 5.7 x 3.8 cm fluid collection medial to the caudate lobe of the liver with mass effect on the liver. There are no pathologically enlarged lymph nodes. T here is mild thoracolumbar spondylosis. There is a 9 mm nonaggressive lytic lesion in left femoral ne ck with sclerotic margin, likely benign. IMPRESSION: 1. Fluid collections in the gallbladder fossa and medial to the caudate lobe of the liver suspicious for bile leak. Consider hepatobiliary scintigraphy. Reviewed, dictated and finalized at location A. ORT STATION SUPERVISOR
--- NOTE | ~2021-12-04 | XR_ITS ---
EXAMINATION: XR ERCP DATE: 12/06/2021 16:34 INDICATION: Bile leak. TECHNIQUE: 11 spot fluoroscopic images of the right upper quadrant were obtained during endoscopic re trograde cholangiopancreatography (ERCP). Fluoroscopy exposure time was 299. COMPARISON: CT 12/04/2021 FINDINGS: There is an endoscope with tip in the second portion the duodenum. There are surgical clips from cholecystectomy. Contrast injection demonstrates leakage into the gallbladder fossa. There is p lacement of an internal biliary stent. IMPRESSION: 1. Bile leak. Internal biliary stent placement in expected position. Please refer to the ERCP procedu re note for additional details. Reviewed, dictated and finalized at location A. IMPRESSION: 1. Bile leak. Internal biliary stent placement in expected position. Please ref er to the ERCP procedure note for additional details.
[2021-12-04 10:57] LABS: Basophils Percent Auto 0.4 % (0.2-1.2); Eosinophils Absolute Auto 0.2 K/mm3 (0-0.3); Eosinophils Percent Auto 1.6 % (0-4.4); Hematocrit 40.9 % (42.0-52.0); Hemoglobin 13.5 g/dL (14.0-18.0); Immature Granulocyte Absolute 0.04 K/mm3 (0.00-0.031); Immature Granulocyte Percent A 0.4 % (0-0.5); Lymphocytes Absolute Auto 0.94 K/mm3 (0.9-3.2); Lymphocytes Percent Auto 8.3 % (18.3-44.2); Mean Corpuscular Hemoglobin 29.5 pg (26-34); Mean Corpuscular Volume 89.3 fl (80-100); Mean Platelet Volume 10.4 fl (7.4-10.4); Monocytes Absolute Auto 0.9 K/mm3 (0.1-0.6); Monocytes Percent Auto 7.6 % (2.6-8.5); Neutrophils Absolute Auto 9.2 K/mm3 (1.3-6.7); Neutrophils Percent Auto 81.7 % (45.5-73.1); Platelet Count Result 246 k/mm3 (150-375); Red Blood Count 4.58 M/mm3 (4.6-6.20); Red Cell Distribution Width 13.2 % (11.5-14.5); White Blood Count 11.3 K/mm3 (4.5-10.0)
[2021-12-04 11:07] LABS: Alanine Aminotransferase 131 U/L (4-50); Albumin Level 4.5 g/dL (3.5-5.1); Alkaline Phosphatase 125 U/L (38-126); Anion Gap 8 mmol/L (8-16); Aspartate Amino Transferase 40 U/L (17-59); Bilirubin,Total 0.6 mg/dL (0.2-1.3); Blood Urea Nitrogen 14 mg/dL (9-20); Calcium 8.6 mg/dL (8.4-10.2); Carbon Dioxide 28 mmol/L (22-30); Chloride 103 mmol/L (98-107); Estimated CRCL calculation 120 ml/min; Estimated Glomerular Filt Rate > 60; Glucose 139 mg/dL (65-110); Lipase 24 U/L (23-300); Potassium 3.7 mmol/L (3.4-5.0); Sodium 139 mmol/L (137-145)
--- NOTE | 2021-12-04 11:57 | PC.NURSE ---
called radiology - spoke with Kuldip, to call in Nuclear Medicine for hepato-biliary NM study.
[2021-12-04] MEDS: HYDROmorphone HCL INJ (*CRX) 1 MG/ML SYR IV PUSH (12:05)
[2021-12-04] MEDS: MORPHINE SULFATE (*CRX) 4 MG/ML INJ IV PUSH ×5 (12:40→19:18)
--- NOTE | 2021-12-04 13:06 | ED.ABDPAIN ---
HPI - Abdominal Pain General Chief Complaint: Abdominal Pain Stated Complaint: ABD pain, after bowel movement Time Seen by Provider: 12/04/21 10:17 History of Present Illness HPI narrative: Patient is a 51-year-old male who presents ER with right upper quadrant abdominal pain. Reports he went from lying to sitting yesterday and felt like he had a tear in his upper abdomen. Today he tried to have bowel movement and while he was using restroom he had sudden severe worsening of his pain in his upper abdomen. Feels like it radiates up to her shoulders. No fevers or chills or sweats. No nausea or vomiting. Patient recently underwent cholecystectomy on 12/01/2021. Received 200 mcg of fentanyl by EMS. Related Data Home Medications Medication Instructions Recorded Confirmed acetaminophen 500 mg tablet See Rx Instructions .ROUTE .COMPLEX 02/09/21 12/04/21 aspirin 81 mg tablet,delayed 81 mg PO DAILY 02/09/21 12/04/21 release oxycodone-acetaminophen 1 tablet PO QID PRN 12/01/21 12/04/21 Allergies Allergy/AdvReac Type Severity Reaction Status Date / Time ibuprofen Allergy Severe Swelling Verified 12/04/21 17:44 duloxetine Allergy Unknown Verified 12/04/21 16:58 naproxen Allergy Unknown Verified 12/04/21 16:58 Review of Systems Review of Systems: All systems reviewed & are unremarkable except as noted in HPI and below Constitutional: Constitutional: Denies chills, Denies fever(s) and Denies weakness ENT: Denies nasal congestion and Denies sore throat Cardiovascular: Cardiovascular: Denies chest pain and Denies radiating jaw, neck or arm pain Respiratory: Respiratory: Denies cough, Denies dyspnea and Denies wheezing Gastrointestinal: Gastrointestinal: Reports abdominal pain, Denies constipation, Denies nausea and Denies vomiting Genitourinary: Genitourinary: Denies dysuria and Denies urinary frequency [facility] Past Medical History Medical History (Updated 12/04/21 @ 17:48 by Chay Brewer MD) Anxiety Blurred vision Cataract (~2012) Cataracts, bilateral Chicken pox Chronic back pain (Unknown) Chronic, continuous use of opioids 5 mg oxy x4/day Surgical History Surgical History (Updated 12/04/21 @ 14:05 by Desmond Cevallos MD) H/O knee surgery (~1994) H/O knee surgery (~2012) History of ankle surgery (~1996) History of appendectomy (~1979) History of cholecystectomy Family History Family History (Updated 12/01/21 @ 09:27 by Shahriar Miller MD) Father Cholecystitis with cholelithiasis Mother Cholecystitis with cholelithiasis Mother Family history of thyroid disease Father Family history of type 2 diabetes mellitus Other Cerebrovascular accident Diabetes mellitus Family history of alcoholism Hypertension Social History Social History Social History: Patient Drinks 1 can of soda daily. 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 HEAD: Normocephalic, atraumatic. EYES: PERRL and EOMI. ENT: Mucous membranes moist. CHEST: Clear to auscultation. No respiratory distress. HEART: Tachycardic and regular. Normal peripheral pulses. ABDOMEN: Soft, tender palpation right upper quadrant epigastrium with guarding, healing surgical port sites with bruising and no cellulitis/fluctuance. Mildly distended. EXTREMITIES: Normal range of motion. No edema. SKIN: Warm, dry, no rash. NEURO: Alert and oriented x3. PSYCH: Normal mood and affect. Course Course Emergency Course: General surgery consulted. They will place order for patient to have ultrasound or CT guided drain placement. There woul
--- NOTE | 2021-12-04 13:35 | PC.NURSE ---
Patient upset as this RN gave IV morphine and Pt because upset stated I have my clock set for 30 minutes and I'm still in pain, MD in with another Pt medication was ordered once MD was able to reassess Pt pain status. Pt is stable at this time.
--- NOTE | 2021-12-04 13:45 | PM.IMHP ---
H&P: HPI History of Present Illness Date/Time: 12/04/21 13:45 Chief Complaint: right upper quadrant abdominal pain Narrative: patient is a 51-year-old man who presented to the emergency room at [facility] 3 days ago, 12/01/2021 with severe right upper quadrant abdominal pain. Evaluation showed that he had acute cholecystitis with gallstones. He was taken to surgery later that day and underwent a difficult laparoscopic cholecystectomy per Dr. Miller. Intraoperative cholangiogram was performed and was normal. I reviewed these films and agree. Pathology did show acute and chronic cholecystitis with cholelithiasis. Patient was able to be discharged the day after surgery, 12/02/2021. He was doing well at home initially but today stretched and felt a pop. This was followed by severe right upper quadrant abdominal pain. In the emergency room, he was noted to have right upper quadrant [place] [id number]. His H&H was normal. LFTs and lipase are normal. Chest x-ray showed mild atelectasis. CT scan of the abdomen and pelvis was done. This showed fluid collection in the gallbladder fossa suspicious for postoperative bile leak. Patient continues to be very uncomfortable with tenderness. He is admitted now for postoperative pain and possible bile leak following cholecystectomy. It should also be noted that patient is not opioid naive. He has taken oxycodone for long-term back pain and prior to that was taking oral morphine. He does work with a pain management physician in [place]. Emergency room physician notes patient received 200 mcg of fentanyl by EMS. Review of Systems Review of Systems: All systems reviewed & are unremarkable except as noted in HPI and below ( HPI and those items noted below.) Constitutional: Constitutional: Denies anorexia, Denies chills, Denies fever(s) and Denies night sweats Cardiovascular: Cardiovascular: Denies chest pain, Denies diaphoresis, Denies dyspnea and Denies paroxysmal nocturnal dyspnea Respiratory: Respiratory: Denies chest congestion, Denies cough and Denies dyspnea Gastrointestinal: Gastrointestinal: Reports as per HPI, Reports abdominal pain, Denies diarrhea, Denies nausea and Denies vomiting Integumentary/Breasts: Skin/Breast: Denies lesions and Denies rash Psychiatric: Psychiatric: Reports as per HPI ( Chronic neuropathic pain and opioid use) [facility] Past Medical History Medical History (Updated 12/04/21 @ 14:06 by Desmond Cevallos MD) Anxiety Blurred vision Cataract (~2012) Cataracts, bilateral Chicken pox Chronic back pain (Unknown) Chronic, continuous use of opioids 5 mg oxy x4/day Surgical History Surgical History (Updated 12/04/21 @ 14:05 by Desmond Cevallos MD) H/O knee surgery (~1994) H/O knee surgery (~2012) History of ankle surgery (~1996) History of appendectomy (~1979) History of cholecystectomy Family History Family History (Updated 12/01/21 @ 09:27 by Shahriar Miller MD) Father Cholecystitis with cholelithiasis Mother Cholecystitis with cholelithiasis Mother Family history of thyroid disease Father Family history of type 2 diabetes mellitus Other Cerebrovascular accident Diabetes mellitus Family history of alcoholism Hypertension Social History Social History Social History: Patient Drinks 1 can of soda daily. 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
[2021-12-04] MEDS: LORazepam INJ (*CRX) 2 MG/ML VIAL 1 MG IV PUSH (14:05)
[2021-12-04 14:08] LABS: Add Urine Microscopic? YES; Appearance Urine Clear (Clear); Bilirubin Urine Negative (Negative); Blood Urine 1+ (Negative); Color Urine Yellow (Yellow); Glucose Urine UA Negative (Negative); Ketones Urine Negative (Negative); Leukocyte Esterase Ur Negative LEU/UL (Negative); Mucus Urine Few /lpf; Nitrate Urine Negative (Negative); Protein Urine Negative (Negative); Squamous Epithelial Cell Urine Rare /hpf (Few); Urobilinogen Urine Negative mg/dL (<2.0); WBC Urine 0-3 /hpf
--- NOTE | 2021-12-04 16:25 | PC.NURSE ---
pt arrived from radiology dept via stretcher, assisted to bed, instructed on drain management and reviewed plan of care and med orders
--- NOTE | 2021-12-04 16:25 | ADMGEN ---
This patient, Leia Jimenez Sr., was admitted to Medical Room 251-01. Patient/family oriented to hospital policies and general routines including ID bracelet, bed and alarms, visiting hours, pain management, procedures, bathroom and other care routines, personal items, smoking policy, room service/diet, and visiting hours. Information on how to activate the Rapid Response Team has been discussed. Patient/Family are encouraged to report perceived risks to care and to ask questions if they do not understand what they are told or what they should do.
[2021-12-04] MEDS: SODIUM CHLORIDE 0.9% IV 1,000 ML 125 ML IV CONT (16:37)
[2021-12-04] MEDS: ENOXAPARIN 40 MG/0.4 ML SYRINGE SUB-Q (18:34)
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
[2021-12-04] MEDS: LORazepam (*CRX) 1 MG TABLET PO (20:32)
[2021-12-04] MEDS: oxyCODONE/ACETAMINOPHEN (*CRX) 5-325 MG TABLET 1 TABLET PO (20:32)
[2021-12-04] MEDS: oxyCODONE HCL (*CRX) 5 MG TAB IR PO (20:33)
[2021-12-04] MEDS: diphenhydrAMINE HCl INJ 50 MG/ML VIAL 25 MG IV PUSH (21:34)
[2021-12-04] MEDS: DOCUSATE SODIUM 100 MG CAPSULE PO (21:35)
[2021-12-04] MEDS: GABAPENTIN 300 MG CAPSULE PO (21:36)
[2021-12-04] MEDS: FAMOTIDINE 20 MG/2 ML VIAL IV PUSH (21:41)
[2021-12-04] MEDS: MORPHINE SULFATE (*CRX) 2 MG/ML INJ IV PUSH (23:10)
[2021-12-05] VITALS (9 sets, daily range): BP systolic 122–179; BP diastolic 86–95; PULSE 75–91; RESP 14–18; TEMP 36–37.2; O2SAT 94–98
[2021-12-05] MEDS: oxyCODONE/ACETAMINOPHEN (*CRX) 5-325 MG TABLET 1 TABLET PO ×4 (00:42→23:01)
[2021-12-05] MEDS: oxyCODONE HCL (*CRX) 5 MG TAB IR PO ×5 (00:43→23:01)
--- NOTE | 2021-12-05 01:48 | PC.NURSE ---
Daylight Savings Time For Daylight Savings Time Ending in the Fall - Clocks are moved back. For Daylight Savings Time Beginning in the Spring - Clocks are moved ahead. For [facility], the time of change occurs at 0200 hrs. Time is taken from the windows server support technician. This entry on the patient's chart recognizes the change in time reflected during documentation. Example: 2 entries for vital signs may be charted for 0200 hrs.
[2021-12-05 05:10] LABS: Hematocrit 37.3 % (42.0-52.0); Mean Corpuscular HGB Conc 32.2 g/dl (32-36); Mean Corpuscular Hemoglobin 29.3 pg (26-34); Mean Platelet Volume 10.4 fl (7.4-10.4); Platelet Count Result 215 k/mm3 (150-375); White Blood Count 7.4 K/mm3 (4.5-10.0)
[2021-12-05 05:26] LABS: Alanine Aminotransferase 82 U/L (4-50); Albumin Level 3.9 g/dL (3.5-5.1); Alkaline Phosphatase 113 U/L (38-126); Anion Gap 6 mmol/L (8-16); Aspartate Amino Transferase 25 U/L (17-59); Blood Urea Nitrogen 14 mg/dL (9-20); Calcium 8.2 mg/dL (8.4-10.2); Carbon Dioxide 28 mmol/L (22-30); Chloride 104 mmol/L (98-107); Estimated CRCL calculation 107 ml/min; Estimated Glomerular Filt Rate > 60; Glucose 115 mg/dL (65-110); Potassium 3.2 mmol/L (3.4-5.0); Sodium 138 mmol/L (137-145)
[2021-12-05] MEDS: GABAPENTIN 300 MG CAPSULE PO ×3 (08:59→16:41)
[2021-12-05] MEDS: FAMOTIDINE 20 MG/2 ML VIAL IV PUSH ×2 (08:59→21:16)
[2021-12-05] MEDS: ENOXAPARIN 40 MG/0.4 ML SYRINGE SUB-Q (08:59)
[2021-12-05] MEDS: DOCUSATE SODIUM 100 MG CAPSULE PO ×2 (08:59→21:16)
[2021-12-05] MEDS: MORPHINE SULFATE (*CRX) 2 MG/ML INJ IV PUSH ×4 (09:05→21:14)
[2021-12-05] MEDS: diphenhydrAMINE HCl INJ 50 MG/ML VIAL 25 MG IV PUSH ×2 (09:28→15:24)
--- NOTE | 2021-12-05 09:47 | PM.IMPN ---
Progress Note: A&P Assessment and Plan (1) Bile leak, postoperative: Code(s): K91.89 - Other postprocedural complications and disorders of digestive system; K83.8 - Other specified diseases of biliary tract Status: Acute (2) History of laparoscopic cholecystectomy: Code(s): Z90.49 - Acquired absence of other specified parts of digestive tract Status: Chronic (3) Right upper quadrant abdominal pain: Code(s): R10.11 - Right upper quadrant pain Status: Acute (4) Opioid dependence with current use: Code(s): F11.20 - Opioid dependence, uncomplicated Status: Chronic (5) Herniation of intervertebral disc between L5 and S1: Code(s): M51.27 - Other intervertebral disc displacement, lumbosacral region Status: Acute (6) Anxiety: Code(s): F41.9 - Anxiety disorder, unspecified Status: Acute (7) Constipation: Code(s): K59.00 - Constipation, unspecified Status: Acute (8) Acquired foot drop: Code(s): M21.379 - Foot drop, unspecified foot Status: Acute (9) Does mobilize using orthotic device: Code(s): Z99.89 - Dependence on other enabling machines and devices Status: Acute Additional Plan 51-year-old gentleman admitted pod 3 from cholecystectomy with presumed biliary leak. Consult has been requested for management of acute on chronic pain in chronic opioid dependent patient. Admitted to med surg Status post CT-guided right upper quadrant abscess drainage Currently NPO except for ice chips and meds with sips Zosyn continued Will initiate oxycodone 10/325 q.4 hours p.r.n. for pain Will initiate gabapentin 300 mg t.i.d. p.r.n. for neuropathic pain of left lower extremity Will initiate lidocaine patches topical treatment of back pain and left lower extremity pain Will continue p.o. Ativan 1 mg t.i.d. p.r.n. for agitation anxiety Will decrease morphine to 2 mg IV q.4 hours p.r.n. for breakthrough pain Colace will be ordered b.i.d. scheduled Dulcolax will be will ordered p.r.n. as first-line agent for constipation Lactulose will be ordered p.r.n. as second-line agent for constipation PT OT will be ordered to further assess physical deficits and provide recommendations May need midline ordered for administration of antibiotic IV fluids and pain medications Defer to surgeon if midline appropriate for this patient Will continue to monitor opiate usage requirements for pain control and adjust accordingly down titrating as possible. Thank you for this consultation and allowing us to participate in the care your patient. 12/05/21 pain control not achieved yet will allow a few more doses of scheduled medications and reassess cont current care lactulose if unable to produce BM RN does have functioning peripheral line in R arm drain w bilious contents cont supportive care PT/OT pending Subjective Date/time seen: 12/05/21 09:47 doing ok pain is uncontrolled but RN administering am meds and IV morphine at time of my visit, no bm reported pt has been given dulcolax and colace Exam Narrative: GEN: NAD, AAOx3, cooperative , obese HEENT: NCAT, MMM, EOMI Neck: no JVD Heart: S1S2 RRR Lungs: CTA B/l Abd: soft, NT, ND, bowel sounds normoactive Ext: moves all, no cyanosis, no clubbing Neuro: normal cognition, moves all extremities, LLE decreased range of motion Psych: mood reduced, affect congruent flattened, poor eye contact Objective Data Vital Signs Vital Signs: Vital Signs - 24 hr 12/04/21 10:17 12/04/21 10:29 12/04/21 10:31 Temperature 99.4 F Pulse Rate 102 H 95 100 Respiratory Rate 22 H 15 17 Blood Pressure 156/102 H 151/106 H 156/102 H Pulse Oximetry 99 12/04/21 10:43 12/04/21 11:35 12/04/21 11:46 Temperature Pulse Rate 88 88 84 Respiratory Rate 16 16 15 Blood Pressure 141/103 H 148/99 H 132/90 Pulse Oximetry 93 95 93 12/04/21 12:01 12/04/21 13:38 12/04/21 13:46 Temperature Pulse Rate 88 84 84
[2021-12-05] MEDS: LIDOCAINE 5% PATCH 2 PATCH TRANSDERM (10:50)
--- NOTE | 2021-12-05 11:15 | WPDGICN ---
Assessment and Plan Assessment and plan (1) Bile leak, postoperative: Code(s): K91.89 - Other postprocedural complications and disorders of digestive system; K83.8 - Other specified diseases of biliary tract Status: Acute Assessment and Plan: he received antibiotic s/p drainage of fluid collection in RUQ will proceed with ERCP tomorrow with sphincterotomy and biliary stent placement to correct leak. This was discussed in detail with patient, explained risk vs benefits including but not limited to pancreatitis, bleeding, infection, etc npo status surgery on board (2) Right upper quadrant abdominal pain: Code(s): R10.11 - Right upper quadrant pain Status: Acute Assessment and Plan: from bile leak ercp tomorrow pain meds (3) History of laparoscopic cholecystectomy: Code(s): Z90.49 - Acquired absence of other specified parts of digestive tract Status: Chronic Assessment and Plan: he presented with acute cholecystitis and required urgent cholecystectomy few days ago (4) Elevated transaminase level: Code(s): R74.01 - Elevation of levels of liver transaminase levels Status: Acute Assessment and Plan: mild elevated, normal bilirubin (5) Opioid dependence with current use: Code(s): F11.20 - Opioid dependence, uncomplicated Status: Chronic GI Consult Note Consult date/time: 12/05/21 11:15 Reason for consult: bile leak after recent cholecystectomy HPI: Leia Freireanthony [place]. is a 51 year old male with history of chronic back pain on morphine at home. He came to hospital on 12/01/2021 with severe right upper quadrant abdominal pain and diagnosed with acute cholecystitis with gallstones and taken to surgery, he underwent a difficult laparoscopic cholecystectomy per Dr. Miller, had significant edema and inflammation. Intraoperative cholangiogram was performed and was normal. Pathology did show acute and chronic cholecystitis with cholelithiasis. He went home next day and was doing ok but yesterday when he was stretching out felt a pop with severe right upper quadrant abdominal pain. [place] [id number], H&H was normal. alt 130 with normal bilirubin, lipase normal. Chest x-ray showed mild atelectasis. CT scan of the abdomen and pelvis reviewed, showed fluid collection in the gallbladder fossa suspicious for postoperative bile leak. Radiology placed drain using CT scan of RUQ collection, noted large amount of bile in bag. He is still uncomfortable. He says that had EGD ~ 15 years ago because ulcer. Review of Systems Constitutional: Constitutional: Denies chills Eyes: Eyes: Denies blurry vision ENT: Reports Normal hearing present Cardiovascular: Cardiovascular: Denies chest pain Respiratory: Respiratory: Denies dyspnea Gastrointestinal: Gastrointestinal: Reports abdominal pain Genitourinary: Genitourinary: Denies dysuria Musculoskeletal: Musculoskeletal: Reports back pain Integumentary/Breasts: Skin/Breast: Denies dry skin Neurologic: Denies headache(s) Psychiatric: Psychiatric: Denies behavioral changes [facility] Past Medical History Medical History (Updated 12/05/21 @ 11:24 by Roe Tinoco MD) Acquired foot drop Anxiety Blurred vision Cataract (~2012) Cataracts, bilateral Chicken pox Chronic back pain (Unknown) Chronic, continuous use of opioids 5 mg oxy x4/day Elevated transaminase level Herniation of intervertebral disc between L5 and S1 Opioid dependence with current use Surgical History Surgical History (Updated 12/04/21 @ 14:05 by Desmond Cevallos MD) H/O knee surgery (~1994) H/O knee surgery (~2012) History of ankle surgery (~1996) History of appendectomy (~1979) History of cholecystectomy Family History Family History (Updated 12/01/21 @ 09:27 by Shahriar Miller MD) Father Cholecystitis with cholelithiasis Mother Cholecystitis with cholelithiasis Mother Family his
--- NOTE | 2021-12-05 14:05 | PM.PNGS ---
Progress Note: A&P Assessment and Plan (1) Bile leak, postoperative: Code(s): K91.89 - Other postprocedural complications and disorders of digestive system; K83.8 - Other specified diseases of biliary tract Status: Acute Assessment and Plan: bile draining from pigtail catheter placed yesterday. Patient feels much better with drainage having been performed. Discussed with Dr. Pelletier. Plans to proceed with ERCP possibly stent placement on Monday, tomorrow. Discussed this with the patient as well. Will go ahead and start low-fat diet but NPO after midnight. He is feeling much better today. (2) History of laparoscopic cholecystectomy: Code(s): Z90.49 - Acquired absence of other specified parts of digestive tract Status: Chronic Assessment and Plan: Incisions healing well. Bile leak most likely cystic duct stump or direct from liver. Intraoperative cholangiogram appeared normal. (3) Cholecystitis, acute with cholelithiasis: Onset Date: ~11/2021 Qualifiers: Biliary obstruction: with biliary obstruction Qualified Code(s): K80.01 - Calculus of gallbladder with acute cholecystitis with obstruction Code(s): K80.00 - Calculus of gallbladder with acute cholecystitis without obstruction Status: Resolved (4) Opioid dependence with current use: Code(s): F11.20 - Opioid dependence, uncomplicated Status: Chronic Assessment and Plan: Receiving narcotics but comfortable. (5) Chronic back pain: Onset Date: Unknown Qualifiers: Back pain location: low back pain Back pain laterality: unspecified Sciatica presence: unspecified whether sciatica present Qualified Code(s): M54.50 - Low back pain, unspecified; G89.29 - Other chronic pain Code(s): M54.9 - Dorsalgia, unspecified; G89.29 - Other chronic pain Status: Chronic (6) Anxiety: Code(s): F41.9 - Anxiety disorder, unspecified Status: Acute Assessment and Plan: P.r.n. lorazepam Subjective Subjective Date/Time Seen: 12/05/21 14:05 Patient reports: feels better and pain is less Review of Systems Review of Systems: All systems reviewed & are unremarkable except as noted in HPI and below Constitutional: Constitutional: Reports as per HPI, Denies chills, Denies fever(s), Denies headache(s) and Reports increased appetite Cardiovascular: Cardiovascular: Denies chest pain and Denies dyspnea Respiratory: Respiratory: Denies cough and Denies dyspnea Gastrointestinal: Gastrointestinal: Reports as per HPI, Reports abdominal pain ( much improved), Denies heartburn, Denies nausea and Denies vomiting Exam Const: General: comfortable and no acute distress; No confusion Orientation/consciousness: patient oriented x3 and No confusion GI: Inspection: incision ( incisions dry and intact, healing well), obesity and other ( pigtail catheter draining bile) GI Palp: Yes Soft to palpation, Yes Tenderness to palpation present (GI), No Guarding due to palpation present (GI) and No Rebound tenderness present Auscultation: normal bowel sounds Neuro: General: patient oriented x3, no focal motor deficits and No confusion Extrem: General: no calf tenderness and no edema Psych: Affect: normal affect Insight: Good insight present (Psych) Judgement: Good judgement present (Psych) Objective Data Vital Signs Vital Signs: Vital Signs - 24 hr 12/04/21 13:38 12/04/21 13:46 12/04/21 14:05 Temperature 36.6 C Pulse Rate 84 84 76 Respiratory Rate 18 19 18 Blood Pressure 148/105 H 155/110 H 154/100 H Pulse Oximetry 92 93 92 12/04/21 15:05 12/04/21 16:28 12/04/21 20:00 Temperature 37.0 C 36.7 C 36.5 C Pulse Rate 104 H 97 84 Respiratory Rate 16 18 18 Blood Pressure 168/101 H 146/88 H 152/86 H Pulse Oximetry 100 96 98 12/05/21 00:00 12/05/21 04:00 12/05/21 06:09 Temperature 36.3 C L 37.2 C Pulse Rate 86 83 Respiratory Rate 18 17 Blood Pressure 1
[2021-12-05] MEDS: KCL 40 MEQ/D5/0.9% SOD CHL 1,000 ML 80 ML IV CONT (14:41)
[2021-12-05] MEDS: LORazepam (*CRX) 1 MG TABLET PO (23:56)
[2021-12-06] VITALS (14 sets, daily range): BP systolic 121–148; BP diastolic 74–98; PULSE 55–79; RESP 14–22; TEMP 36.2–36.7; O2SAT 93–100
[2021-12-06] MEDS: KCL 40 MEQ/D5/0.9% SOD CHL 1,000 ML 80 ML IV CONT ×2 (03:27→20:28)
[2021-12-06] MEDS: MORPHINE SULFATE (*CRX) 2 MG/ML INJ IV PUSH ×4 (03:27→20:29)
[2021-12-06 05:38] LABS: Hematocrit 35.7 % (42.0-52.0); Hemoglobin 11.7 g/dL (14.0-18.0); Mean Corpuscular HGB Conc 32.8 g/dl (32-36); Mean Corpuscular Hemoglobin 29.2 pg (26-34); Mean Platelet Volume 10.2 fl (7.4-10.4); Platelet Count Result 223 k/mm3 (150-375); Red Blood Count 4.01 M/mm3 (4.6-6.20); Red Cell Distribution Width 12.8 % (11.5-14.5); White Blood Count 4.6 K/mm3 (4.5-10.0)
[2021-12-06 05:44] LABS: Alanine Aminotransferase 58 U/L (4-50); Albumin Level 3.8 g/dL (3.5-5.1); Alkaline Phosphatase 102 U/L (38-126); Anion Gap 6 mmol/L (8-16); Aspartate Amino Transferase 23 U/L (17-59); Bilirubin,Total 0.5 mg/dL (0.2-1.3); Blood Urea Nitrogen 10 mg/dL (9-20); Calcium 8.4 mg/dL (8.4-10.2); Carbon Dioxide 28 mmol/L (22-30); Chloride 105 mmol/L (98-107); Estimated CRCL calculation 97 ml/min; Estimated Glomerular Filt Rate > 60; Glucose 107 mg/dL (65-110); Potassium 3.8 mmol/L (3.4-5.0); Sodium 139 mmol/L (137-145)
--- NOTE | 2021-12-06 07:23 | PM.IMPN ---
Progress Note: A&P Assessment and Plan (1) Bile leak, postoperative: Code(s): K91.89 - Other postprocedural complications and disorders of digestive system; K83.8 - Other specified diseases of biliary tract Status: Acute (2) History of laparoscopic cholecystectomy: Code(s): Z90.49 - Acquired absence of other specified parts of digestive tract Status: Chronic (3) Right upper quadrant abdominal pain: Code(s): R10.11 - Right upper quadrant pain Status: Acute (4) Opioid dependence with current use: Code(s): F11.20 - Opioid dependence, uncomplicated Status: Chronic (5) Herniation of intervertebral disc between L5 and S1: Code(s): M51.27 - Other intervertebral disc displacement, lumbosacral region Status: Acute (6) Anxiety: Code(s): F41.9 - Anxiety disorder, unspecified Status: Acute (7) Constipation: Code(s): K59.00 - Constipation, unspecified Status: Acute (8) Acquired foot drop: Code(s): M21.379 - Foot drop, unspecified foot Status: Acute (9) Does mobilize using orthotic device: Code(s): Z99.89 - Dependence on other enabling machines and devices Status: Acute Additional Plan 51-year-old gentleman admitted pod 3 from cholecystectomy with presumed biliary leak. Consult has been requested for management of acute on chronic pain in chronic opioid dependent patient. Admitted to med surg Status post CT-guided right upper quadrant abscess drainage Currently NPO except for ice chips and meds with sips Zosyn continued Will initiate oxycodone 10/325 q.4 hours p.r.n. for pain Will initiate gabapentin 300 mg t.i.d. p.r.n. for neuropathic pain of left lower extremity Will initiate lidocaine patches topical treatment of back pain and left lower extremity pain Will continue p.o. Ativan 1 mg t.i.d. p.r.n. for agitation anxiety Will decrease morphine to 2 mg IV q.4 hours p.r.n. for breakthrough pain Colace will be ordered b.i.d. scheduled Dulcolax will be will ordered p.r.n. as first-line agent for constipation Lactulose will be ordered p.r.n. as second-line agent for constipation PT OT will be ordered to further assess physical deficits and provide recommendations May need midline ordered for administration of antibiotic IV fluids and pain medications Defer to surgeon if midline appropriate for this patient Will continue to monitor opiate usage requirements for pain control and adjust accordingly down titrating as possible. Thank you for this consultation and allowing us to participate in the care your patient. 12/05/21 pain control not achieved yet will allow a few more doses of scheduled medications and reassess cont current care lactulose if unable to produce BM RN does have functioning peripheral line in R arm drain w bilious contents cont supportive care PT/OT pending 12/06/21 ERCP today currently NPO Dilaudid per surgeon cont current care Subjective Date/time seen: 12/06/21 07:23 pt states that Percocet was helping his pain but now he is getting dilaudid IV . He is advised that the 10/325 q 4 hrs is 3x the amount of his normal outpatient narcotic script and that he should try to return to using that preferentially over IV narcotics after procedure today to prevent withdrawal and poor pain control at time of discharge. Pt agrees. Exam Narrative: GEN: NAD, AAOx3, cooperative , obese HEENT: NCAT, MMM, EOMI Neck: no JVD Heart: S1S2 RRR Lungs: CTA B/l Abd: soft, NT, ND, bowel sounds normoactive Ext: moves all, no cyanosis, no clubbing Neuro: normal cognition, moves all extremities, LLE decreased range of motion Psych: mood and affect congruent Objective Data Vital Signs Vital Signs: Vital Signs - 24 hr 12/05/21 09:35 12/05/21 09:57 12/05/21 13:44 Temperature 99.0 F 97.9 F Pulse Rate 89 91 Respiratory Rate 18 18 18 Blood Pressure 144/86 H 153/91 H Pulse Oximetry 98 96 98 12/05/21 18:38
[2021-12-06] MEDS: FAMOTIDINE 20 MG/2 ML VIAL IV PUSH ×2 (08:37→20:29)
[2021-12-06] MEDS: LIDOCAINE 5% PATCH 2 PATCH TRANSDERM (08:37)
[2021-12-06] MEDS: LORazepam (*CRX) 1 MG TABLET PO ×2 (09:28→20:29)
[2021-12-06] MEDS: HYDROmorphone HCL INJ (*CRX) 1 MG/ML SYR IV PUSH ×3 (10:14→17:03)
--- NOTE | 2021-12-06 13:11 | PM.PNGS ---
Progress Note: A&P Assessment and Plan (1) Bile leak, postoperative: Code(s): K91.89 - Other postprocedural complications and disorders of digestive system; K83.8 - Other specified diseases of biliary tract Status: Acute Assessment and Plan: Continue to monitor RUQ perc drain. Plan for ERCP today. Will switch to IV Dilaudid to improve pain control while NPO this morning awaiting ERCP. (2) History of laparoscopic cholecystectomy: Code(s): Z90.49 - Acquired absence of other specified parts of digestive tract Status: Chronic (3) Cholecystitis, acute with cholelithiasis: Onset Date: ~11/2021 Qualifiers: Biliary obstruction: with biliary obstruction Qualified Code(s): K80.01 - Calculus of gallbladder with acute cholecystitis with obstruction Code(s): K80.00 - Calculus of gallbladder with acute cholecystitis without obstruction Status: Resolved (4) Opioid dependence with current use: Code(s): F11.20 - Opioid dependence, uncomplicated Status: Chronic Assessment and Plan: Receiving narcotics but comfortable. (5) Chronic back pain: Onset Date: Unknown Qualifiers: Back pain location: low back pain Back pain laterality: unspecified Sciatica presence: unspecified whether sciatica present Qualified Code(s): M54.50 - Low back pain, unspecified; G89.29 - Other chronic pain Code(s): M54.9 - Dorsalgia, unspecified; G89.29 - Other chronic pain Status: Chronic Assessment and Plan: Chronic opioid use and pain is poorly controlled this morning. Adjusted his IV pain medication while NPO, will go back to previous pain medication regimen after ERCP - discussed this with the nurse. (6) Anxiety: Code(s): F41.9 - Anxiety disorder, unspecified Status: Acute Assessment and Plan: P.r.n. lorazepam Additional Plan I have discussed the patient's case and plan of care with Dr. Miller. Subjective Subjective Date/Time Seen: 12/06/21 09:11 Patient reports: still having pain (RUQ), flatus and afebrile Interval history: This is a 51 yo male who underwent a laparoscopic cholecystectomy with IOC on 12/01/[address] Miller. He went home POD1 and came back into the ER for evaluation of abdominal pain. He was found to have a post-operative bile leak with a fluid collection in the gallbladder fossa that was percutaneous drained in Radiology on 12/04/21. Chart reviewed and patient is now seen this morning. He is scheduled for an ERCP today. He is still complaining of severe RUQ abdominal pain that he feels is actually worse than yesterday. He does not feel that the IV Morphine is controlling this pain at all, and he has not been able to have his oral pain medication (oxycodone that he takes chronically) due to his NPO status. Denies nausea or vomiting. No other complaints at this time. Review of Systems Review of Systems: All systems reviewed & are unremarkable except as noted in HPI and below Exam Const: General: comfortable, no acute distress and awake Orientation/consciousness: patient oriented x3 GI: Inspection: incision ( incisions dry and glue intact, ecchymosis noted at periumbilical incision) and other (RUQ perc drain with bilious-appearing drainage) GI Palp: Yes Soft to palpation, Yes Tenderness to palpation present (GI) (tender throughout entire abd, he states worse in RUQ), No Guarding due to palpation present (GI) and No Rebound tenderness present Auscultation: normal bowel sounds Other: Diffuse red rash along his lower abdomen below the umbilicus that is more prominent on the left side but does also have some patchy areas extending to the RLQ Neuro: General: no focal motor deficits Extrem: General: no calf tenderness and no edema Psych: Insight: Good insight present (Psych) Judgement: Good judgement present (Psych) Objective Data Vital Signs Vital Signs: Vital Signs - 24 hr 12/05/21 13:44 12/05/21 18:38
[2021-12-06] MEDS: LACTATED RINGERS 1,000 ML 150 ML IV CONT ×3 (13:40→17:04)
--- NOTE | 2021-12-06 13:59 | WPDANESEPPF ---
Anes - Initial Pre Proc Eval Procedure: Operation Date: 12/06/21 15:45 Proposed Procedures p Endoscopic Retro Cholangiopancreatogram - Roe Tinoco MD Date/Time: 12/06/21 13:59 Surgeon: Shahriar Miller MD Pre Op Diagnosis: Bile Leak Patient Data Age: 51 Gender: M Height: 1.75 m Weight: 119 kg Last Vital Signs Temp 36.3 C L 12/06/21 13:54 Pulse 63 12/06/21 13:54 Resp 20 12/06/21 13:54 BP 141/98 H 12/06/21 13:54 Pulse Ox 99 12/06/21 13:54 Allergies Allergy/AdvReac Type Severity Reaction Status Date / Time ibuprofen Allergy Severe Swelling Verified 12/06/21 13:44 duloxetine Allergy Unknown Verified 12/06/21 13:44 naproxen Allergy Unknown Verified 12/06/21 13:44 Home Medications Medication Instructions Recorded Confirmed Type acetaminophen 500 mg tablet See Rx Instructions .ROUTE .COMPLEX 02/09/21 12/04/21 History aspirin 81 mg tablet,delayed 81 mg PO DAILY 02/09/21 12/04/21 History release oxycodone-acetaminophen 1 tablet PO QID PRN 12/01/21 12/04/21 History oxycodone-acetaminophen 2 tablet PO Q6H PRN #24 tablet 12/02/21 12/04/21 Rx Laboratory Tests 12/06/21 12/06/21 04:58 04:58 WBC 4.6 K/mm3 K/mm3 (4.5-10.0) RBC 4.01 M/mm3 L M/mm3 (4.6-6.20) Hgb 11.7 g/dL L g/dL (14.0-18.0) Hct 35.7 % L % (42.0-52.0) MCV 89.0 fl fl (80-100) MCH 29.2 pg pg (26-34) MCHC 32.8 g/dl g/dl (32-36) RDW 12.8 % % (11.5-14.5) Plt Count 223 k/mm3 k/mm3 (150-375) MPV 10.2 fl fl (7.4-10.4) Sodium 139 mmol/L mmol/L (137-145) Potassium 3.8 mmol/L mmol/L (3.4-5.0) Chloride 105 mmol/L mmol/L (98-107) Carbon Dioxide 28 mmol/L mmol/L (22-30) Anion Gap 6 mmol/L L mmol/L (8-16) BUN 10 mg/dL mg/dL (9-20) Creatinine 1.00 mg/dL mg/dL (0.7-1.3) Estim Creat Clear Calc 97 ml/min ml/min Estimated GFR > 60 (59 - ) Glucose 107 mg/dL mg/dL (65-110) Calcium 8.4 mg/dL mg/dL (8.4-10.2) Total Bilirubin 0.5 mg/dL mg/dL (0.2-1.3) AST 23 U/L U/L (17-59) ALT 58 U/L H U/L (4-50) Alkaline Phosphatase 102 U/L U/L (38-126) Total Protein 7.0 g/dL g/dL (6.3-8.2) Albumin 3.8 g/dL g/dL (3.5-5.1) Patient hx anesthesia problems: none Family hx anesthesia problems: none Results Review: All pre-operative results and documents have been reviewed as part of the pre-operative evaluation. [facility] Past Medical History Medical History Acquired foot drop Anxiety Blurred vision Cataract (~2012) Cataracts, bilateral Chicken pox Chronic back pain (Unknown) Chronic, continuous use of opioids 5 mg oxy x4/day Elevated transaminase level Herniation of intervertebral disc between L5 and S1 Opioid dependence with current use Surgical History Surgical History H/O knee surgery (~1994) H/O knee surgery (~2012) History of ankle surgery (~1996) History of appendectomy (~1979) History of cholecystectomy Family History Family History Father Cholecystitis with cholelithiasis Mother Cholecystitis with cholelithiasis Mother Family history of thyroid disease Father Family history of type 2 diabetes mellitus Other Cerebrovascular accident Diabetes mellitus Family history of alcoholism Hypertension Social History Social History Social History: Patient Drinks 1 can of soda daily. 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
[2021-12-06] MEDS: DOCUSATE SODIUM 100 MG CAPSULE PO (17:56)
[2021-12-06] MEDS: oxyCODONE HCL (*CRX) 5 MG TAB IR PO ×2 (17:57→22:13)
[2021-12-06] MEDS: oxyCODONE/ACETAMINOPHEN (*CRX) 5-325 MG TABLET 1 TABLET PO ×2 (17:57→22:14)
[2021-12-06] MEDS: GABAPENTIN 300 MG CAPSULE PO (17:57)
[2021-12-06] MEDS: ENOXAPARIN 40 MG/0.4 ML SYRINGE SUB-Q (17:57)
[2021-12-07] VITALS (8 sets, daily range): BP systolic 149–156; BP diastolic 90–97; PULSE 56–77; RESP 16–20; TEMP 36.1–36.9; O2SAT 94–100
[2021-12-07] MEDS: MORPHINE SULFATE (*CRX) 2 MG/ML INJ IV PUSH ×6 (02:09→22:50)
[2021-12-07] MEDS: oxyCODONE/ACETAMINOPHEN (*CRX) 5-325 MG TABLET 1 TABLET PO ×5 (03:52→20:38)
[2021-12-07] MEDS: oxyCODONE HCL (*CRX) 5 MG TAB IR PO ×5 (03:52→20:39)
[2021-12-07 06:08] LABS: Alanine Aminotransferase 72 U/L (4-50); Alkaline Phosphatase 124 U/L (38-126); Anion Gap 8 mmol/L (8-16); Aspartate Amino Transferase 51 U/L (17-59); Bilirubin,Total 0.4 mg/dL (0.2-1.3); Blood Urea Nitrogen 9 mg/dL (9-20); Calcium 8.7 mg/dL (8.4-10.2); Carbon Dioxide 27 mmol/L (22-30); Chloride 105 mmol/L (98-107); Estimated CRCL calculation 120 ml/min; Estimated Glomerular Filt Rate > 60; Glucose 147 mg/dL (65-110); Potassium 4.5 mmol/L (3.4-5.0); Sodium 140 mmol/L (137-145)
[2021-12-07] MEDS: KCL 40 MEQ/D5/0.9% SOD CHL 1,000 ML 80 ML IV CONT ×2 (08:09→20:27)
[2021-12-07] MEDS: DOCUSATE SODIUM 100 MG CAPSULE PO ×2 (08:12→20:30)
[2021-12-07] MEDS: LIDOCAINE 5% PATCH 2 PATCH TRANSDERM (08:13)
[2021-12-07] MEDS: ENOXAPARIN 40 MG/0.4 ML SYRINGE SUB-Q (08:15)
[2021-12-07] MEDS: FAMOTIDINE 20 MG/2 ML VIAL IV PUSH ×2 (08:15→20:30)
[2021-12-07] MEDS: GABAPENTIN 300 MG CAPSULE PO ×3 (08:15→17:03)
[2021-12-07] MEDS: LORazepam (*CRX) 1 MG TABLET PO ×3 (09:40→20:52)
--- NOTE | 2021-12-07 11:12 | WPDANESPN ---
Anes - Prog Note Post-Op Date/Time: 12/07/21 11:12 Cardiovascular status: normal Respiratory status: normal Airway patency: baseline Mental status: baseline Post-Op hydration status: normal Vital Signs: Last Vital Signs Temp 97.0 F L 12/07/21 09:53 Pulse 59 L 12/07/21 09:53 Resp 20 12/07/21 09:53 BP 151/96 H 12/07/21 09:53 Pulse Ox 99 12/07/21 09:53 Pain Score (VAS): 5 I/O: Intake & Output 12/06/21 12/07/21 12/07/21 23:59 07:59 15:59 Intake Total 1660 186 2343 Output Total 1070 1540 Balance 710 -1240 1120 Laboratory Tests 12/06/21 04:58 12/07/21 05:10 12/07/21 05:10 Sodium 140 Potassium 4.5 Chloride 105 Carbon Dioxide 27 Anion Gap 8 BUN 9 Creatinine 0.80 Estim Creat Clear Calc 120 Estimated GFR > 60 Glucose 147 H Calcium 8.7 Total Bilirubin 0.4 AST 51 ALT 72 H Alkaline Phosphatase 124 Total Protein 7.0 Albumin 4.0 Microbiology 12/04/21 16:11 Abscess Anaerobic Culture - Preliminary 12/04/21 16:11 Abscess Aerobic Culture - Final Post-procedural complaints: none Patient Feedback: Patient satisfied with anesthetic care.
--- NOTE | 2021-12-07 13:30 | WPDGIPROGNO ---
Progress Note: A&P Assessment and Plan (1) Bile leak, postoperative: Code(s): K91.89 - Other postprocedural complications and disorders of digestive system; K83.8 - Other specified diseases of biliary tract Status: Acute Assessment and Plan: ercp yesterday, performed sphincterotomy and placed long plastic stent in bile duct more abdominal pain, will check pancreatic enzyme just in case to assess if post-ercp pancreatitis but normal enzymes ok today no more bile output from perc drainage ercp in 8 weeks to remove stent and assess bile duct patency again (2) Right upper quadrant abdominal pain: Code(s): R10.11 - Right upper quadrant pain Status: Acute Assessment and Plan: medical care liquid diet for now (3) Opioid dependence with current use: Code(s): F11.20 - Opioid dependence, uncomplicated Status: Chronic Subjective Date/time seen: 12/07/21 13:30 Interval history: ercp yesterday c/w bile leak, placed a long plastic biliary stent. He says that has not had any more bile from percutaneous catheter since last night. Today noted more abdominal pain after eating, feels like having peptic ulcer , no nausea. Review of Systems Review of Systems: All systems reviewed & are unremarkable except as noted in HPI and below Exam Const: General: comfortable and no acute distress HENMT: General nose exam: Normal nares present Eyes: Sclera: sclerae normal Neck: Neck: supple Resp: Auscultation: clear to auscultation bilaterally Cardio: Rate: regular rate GI: Inspection: distended GI Palp: Yes Tenderness to palpation present (GI) (epigastric and ruq, no rebound) Auscultation: normal bowel sounds Other: percutaneous drainage in RUQ, no more bile in bag Skin: General skin exam: normal color Neuro: Speech: normal speech Motor exam (neuro): Normal motor muscle tone present throughout Extrem: General: normal to inspection Psych: Mental Status: mental status grossly normal Objective Data Vital Signs Vital Signs: Vital Signs - 24 hr 12/06/21 13:54 12/06/21 16:14 12/06/21 16:31 Temperature 97.4 F L 98.0 F Pulse Rate 63 56 L Respiratory Rate 20 22 H Blood Pressure 141/98 H 133/74 Pulse Oximetry 99 97 99 12/06/21 16:41 12/06/21 16:51 12/06/21 17:01 Temperature Pulse Rate 60 55 L 56 L Respiratory Rate 20 18 20 Blood Pressure 121/76 128/76 123/78 Pulse Oximetry 100 100 96 12/06/21 17:11 12/06/21 17:21 12/06/21 18:00 Temperature 97.2 F L Pulse Rate 60 66 65 Respiratory Rate 18 20 16 Blood Pressure 135/82 133/79 141/87 H Pulse Oximetry 96 95 96 12/06/21 20:00 12/06/21 21:02 12/07/21 04:30 Temperature 97.6 F Pulse Rate 62 62 Respiratory Rate 14 14 Blood Pressure 148/94 H Pulse Oximetry 95 95 94 12/07/21 05:35 12/07/21 08:15 12/07/21 09:53 Temperature 98.4 F 97.0 F L Pulse Rate 56 L 59 L Respiratory Rate 20 20 20 Blood Pressure 156/97 H 151/96 H Pulse Oximetry 95 99 99 Intake/Output Intake/Output: Intake & Output 12/04/21 12/05/21 12/06/21 12/07/21 22:59 23:59 23:59 23:59 Intake Total 5080 1780 Output Total 1970 1540 Balance 3110 240 Meds/Results Medications: Active Medications Generic Name Dose Route Start Last Admin Trade Name Freq PRN Reason Stop Dose Admin Acetaminophen 650 mg 12/04/21 18:02 Acetaminophen 325 Mg Tablet PO Q6H PRN Mild Pain (1-3) or Fever Bisacodyl 5 mg 12/04/21 20:35 Bisacodyl 5 Mg Tablet Ec PO QPM PRN Constipation 1st use Diphenhydramine HCl 25 mg 12/04/21 17:32 12/05/21 15:24 Diphenhydramine Hcl Inj 50 Mg/Ml Vial IV PUSH 25 mg Q6H PRN Administration Itching Docusate Sodium 100 mg 12/04/21 21:00 12/07/21 08:12 Docusate Sodium 100 Mg Capsule PO 100 mg Q12HR MARISELA Administration Enoxaparin Sodium 40 mg 12/05/21 09:00 12/07/21 08:15 Enoxaparin 40 Mg/0.4 Ml Syringe SUB-Q 40 mg DAILY MARISELA Administration Famoti
--- NOTE | 2021-12-07 14:22 | PM.PNGS ---
Progress Note: A&P Assessment and Plan (1) Bile leak, postoperative: Code(s): K91.89 - Other postprocedural complications and disorders of digestive system; K83.8 - Other specified diseases of biliary tract Status: Acute Assessment and Plan: S/p RUQ perc drain placement on 3 and ERCP yesterday with bile leak noted in proximal CBD and a plastic stent placed. He is having more abdominal pain today across his upper abdomen. He feels this is worse than after his ERCP. Agree with checking a lipase d/t worsening pain after ERCP. Continue oral analgesics, will continue IV Morphine PRN for now to have as an option for breakthrough pain since his pain is uncontrolled without. Continue full liquids Repeat labs tomorrow (2) Opioid dependence with current use: Code(s): F11.20 - Opioid dependence, uncomplicated Status: Chronic Assessment and Plan: Chronic opioid use which he typically takes oxycodone/acetaminophen 5-325 mg 1 tablet QID PRN. He has been increased to a 5-325 mg tablet with an additional 5 mg oxycodone to make a total of 10 mg dose of oxycodone Q4H for his pain currently. He is complaining mostly of upper abdominal pain and feels this is worse following the ERCP. Will continue oral pain medication and allow IV Morphine for breakthrough pain. See plan above. (3) History of laparoscopic cholecystectomy: Code(s): Z90.49 - Acquired absence of other specified parts of digestive tract Status: Chronic Assessment and Plan: POD#6 with postop bile leak s/p ERCP. See plan above. (4) Cholecystitis, acute with cholelithiasis: Onset Date: ~11/2021 Qualifiers: Biliary obstruction: with biliary obstruction Qualified Code(s): K80.01 - Calculus of gallbladder with acute cholecystitis with obstruction Code(s): K80.00 - Calculus of gallbladder with acute cholecystitis without obstruction Status: Resolved (5) Chronic back pain: Onset Date: Unknown Qualifiers: Back pain laterality: unspecified Back pain location: low back pain Sciatica presence: unspecified whether sciatica present Qualified Code(s): M54.50 - Low back pain, unspecified; G89.29 - Other chronic pain Code(s): M54.9 - Dorsalgia, unspecified; G89.29 - Other chronic pain Status: Chronic (6) Anxiety: Code(s): F41.9 - Anxiety disorder, unspecified Status: Acute Assessment and Plan: P.r.n. lorazepam Additional Plan I have discussed the patient's case and plan of care with Dr. Miller. Subjective Subjective Date/Time Seen: 12/07/21 14:22 Patient reports: still having pain, flatus, bowel movement and afebrile Interval history: Patient seen and examined today. He is restless and appears very uncomfortable when entering the room. He reports his abdominal pain is all across his upper abdomen and feels worse than yesterday. He is s/p ERCP yesterday. He denies any nausea or vomiting, but feels he is more bloated today. He has been passing gas and had a large good BM this morning. No other complaints at this time. Output from the cholecystostomy drain is diminishing. Review of Systems Review of Systems: All systems reviewed & are unremarkable except as noted in HPI and below Exam Const: General: awake, anxious and uncomfortable Orientation/consciousness: patient oriented x3 GI: Inspection: incision ( incisions dry and glue intact, ecchymosis noted at periumbilical incision), obesity and other (RUQ perc drain with no output in drainage bag) GI Palp: Yes Soft to palpation, Yes Tenderness to palpation present (GI) (tender throughout, worse in upper abdomen) and No Guarding due to palpation present (GI) Auscultation: normal bowel sounds Other: Diffuse red rash along his lower abdomen below the umbilicus that is more prominent on the left side but does also have some patchy areas extending to the RLQ Neuro: General: no focal motor deficits Extrem: General: no
--- NOTE | 2021-12-07 14:25 | PM.IMPN ---
Progress Note: A&P Assessment and Plan (1) Bile leak, postoperative: Code(s): K91.89 - Other postprocedural complications and disorders of digestive system; K83.8 - Other specified diseases of biliary tract Status: Acute (2) History of laparoscopic cholecystectomy: Code(s): Z90.49 - Acquired absence of other specified parts of digestive tract Status: Chronic (3) Right upper quadrant abdominal pain: Code(s): R10.11 - Right upper quadrant pain Status: Acute (4) Opioid dependence with current use: Code(s): F11.20 - Opioid dependence, uncomplicated Status: Chronic (5) Herniation of intervertebral disc between L5 and S1: Code(s): M51.27 - Other intervertebral disc displacement, lumbosacral region Status: Acute (6) Anxiety: Code(s): F41.9 - Anxiety disorder, unspecified Status: Acute (7) Constipation: Code(s): K59.00 - Constipation, unspecified Status: Acute (8) Acquired foot drop: Code(s): M21.379 - Foot drop, unspecified foot Status: Acute (9) Does mobilize using orthotic device: Code(s): Z99.89 - Dependence on other enabling machines and devices Status: Acute Additional Plan 51-year-old gentleman admitted pod 3 from cholecystectomy with presumed biliary leak. Consult has been requested for management of acute on chronic pain in chronic opioid dependent patient. Admitted to med surg Status post CT-guided right upper quadrant abscess drainage Currently NPO except for ice chips and meds with sips Zosyn continued Will initiate oxycodone 10/325 q.4 hours p.r.n. for pain Will initiate gabapentin 300 mg t.i.d. p.r.n. for neuropathic pain of left lower extremity Will initiate lidocaine patches topical treatment of back pain and left lower extremity pain Will continue p.o. Ativan 1 mg t.i.d. p.r.n. for agitation anxiety Will decrease morphine to 2 mg IV q.4 hours p.r.n. for breakthrough pain Colace will be ordered b.i.d. scheduled Dulcolax will be will ordered p.r.n. as first-line agent for constipation Lactulose will be ordered p.r.n. as second-line agent for constipation PT OT will be ordered to further assess physical deficits and provide recommendations May need midline ordered for administration of antibiotic IV fluids and pain medications Defer to surgeon if midline appropriate for this patient Will continue to monitor opiate usage requirements for pain control and adjust accordingly down titrating as possible. Thank you for this consultation and allowing us to participate in the care your patient. 12/05/21 pain control not achieved yet will allow a few more doses of scheduled medications and reassess cont current care lactulose if unable to produce BM RN does have functioning peripheral line in R arm drain w bilious contents cont supportive care PT/OT pending 12/06/21 ERCP today currently NPO Dilaudid per surgeon cont current care 12/07/2021 interval history: patient had a ERCP yesterday and stents were placed to stop the by bile leakage in today his drain is empty, patient does complain of abdominal pain and felt nauseated, patient is seen by surgery service receiving pain medication, patient seen by GI recommending to repeat the ERCP in 8 weeks to assess the patency of the stent, patient remains clinically stable will continue present management. Subjective Date/time seen: 12/07/21 14:25 12/07/2021 interval history: patient had a ERCP yesterday and stents were placed to stop the by bile leakage in today his drain is empty, patient does complain of abdominal pain and felt nauseated, patient is seen by surgery service receiving pain medication, patient seen by GI recommending to repeat the ERCP in 8 weeks to assess the patency of the stent, patient remains clinically stable will continue present management. Review of Systems Review of Systems: All systems reviewed & are unremarkable except as noted in
[2021-12-08] MEDS: oxyCODONE/ACETAMINOPHEN (*CRX) 5-325 MG TABLET 1 TABLET PO ×6 (00:08→22:57)
[2021-12-08] MEDS: oxyCODONE HCL (*CRX) 5 MG TAB IR PO ×6 (00:09→22:56)
[2021-12-08 02:00] VITALS: BP 160/95; PULSE 87; RESP 18; TEMP 36.3; O2SAT 96
[2021-12-08] MEDS: MORPHINE SULFATE (*CRX) 2 MG/ML INJ IV PUSH ×5 (02:21→20:17)
[2021-12-08 05:41] VITALS: BP 149/88; PULSE 86; RESP 17; TEMP 37.2; O2SAT 94
[2021-12-08 06:10] LABS: Hematocrit 37.7 % (42.0-52.0); Hemoglobin 12.4 g/dL (14.0-18.0); Mean Corpuscular HGB Conc 32.9 g/dl (32-36); Mean Corpuscular Volume 88.3 fl (80-100); Mean Platelet Volume 9.6 fl (7.4-10.4); Platelet Count Result 300 k/mm3 (150-375); Red Blood Count 4.27 M/mm3 (4.6-6.20); Red Cell Distribution Width 12.7 % (11.5-14.5); White Blood Count 13.7 K/mm3 (4.5-10.0)
[2021-12-08 06:39] LABS: Alanine Aminotransferase 81 U/L (4-50); Albumin Level 3.9 g/dL (3.5-5.1); Alkaline Phosphatase 121 U/L (38-126); Anion Gap 8 mmol/L (8-16); Aspartate Amino Transferase 51 U/L (17-59); Bilirubin,Total 0.4 mg/dL (0.2-1.3); Blood Urea Nitrogen 5 mg/dL (9-20); Calcium 8.6 mg/dL (8.4-10.2); Carbon Dioxide 24 mmol/L (22-30); Chloride 103 mmol/L (98-107); Estimated CRCL calculation 120 ml/min; Estimated Glomerular Filt Rate > 60; Glucose 111 mg/dL (65-110); Lipase 1832 U/L (23-300); Potassium 3.9 mmol/L (3.4-5.0); Sodium 135 mmol/L (137-145)
--- NOTE | 2021-12-08 07:28 | WPDGIPROGNO ---
Progress Note: A&P Assessment and Plan (1) Bile leak, postoperative: Code(s): K91.89 - Other postprocedural complications and disorders of digestive system; K83.8 - Other specified diseases of biliary tract Status: Acute Assessment and Plan: treated with ERCP and bile stent placement no more bile in bag, will ask surgery if can be removed. will need ercp in 8 weeks to remove stent and reassess bile duct (2) Post-ERCP acute pancreatitis: Code(s): K91.89 - Other postprocedural complications and disorders of digestive system; K85.90 - Acute pancreatitis without necrosis or infection, unspecified Status: Acute Assessment and Plan: pain is much better this morning probably post-ercp pancreatitis but clinically doing better CL diet for now (3) Elevated transaminase level: Code(s): R74.01 - Elevation of levels of liver transaminase levels Status: Acute Assessment and Plan: stable (4) Opioid dependence with current use: Code(s): F11.20 - Opioid dependence, uncomplicated Status: Chronic (5) Right upper quadrant abdominal pain: Code(s): R10.11 - Right upper quadrant pain Status: Acute Subjective Date/time seen: 12/08/21 07:28 Interval history: abdominal pain was severe yesterday, says that today is 100% improved but still some pain. no more bile drain from perc catheter since ERCP Review of Systems Review of Systems: All systems reviewed & are unremarkable except as noted in HPI and below Exam Const: General: comfortable and no acute distress HENMT: General nose exam: Normal nares present Eyes: Sclera: sclerae normal Neck: Neck: supple Resp: Auscultation: clear to auscultation bilaterally Cardio: Rate: regular rate GI: Inspection: distended GI Palp: Yes Tenderness to palpation present (GI) (epigastric and ruq, no rebound) Auscultation: normal bowel sounds Other: percutaneous drainage in RUQ, no more bile in bag Skin: General skin exam: normal color Neuro: Speech: normal speech Motor exam (neuro): Normal motor muscle tone present throughout Extrem: General: normal to inspection Psych: Mental Status: mental status grossly normal Objective Data Vital Signs Vital Signs: Vital Signs - 24 hr 12/07/21 08:15 12/07/21 09:53 12/07/21 14:00 Temperature 97.0 F L 97.2 F L Pulse Rate 59 L 69 Respiratory Rate 20 20 16 Blood Pressure 151/96 H 149/92 H Pulse Oximetry 99 99 100 12/07/21 17:53 12/07/21 20:05 12/07/21 20:35 Temperature 97.0 F L 97.5 F L Pulse Rate 77 69 69 Respiratory Rate 18 18 18 Blood Pressure 150/92 H 149/90 H Pulse Oximetry 96 97 97 12/08/21 02:00 12/08/21 05:41 Temperature 97.3 F L 98.9 F Pulse Rate 87 86 Respiratory Rate 18 17 Blood Pressure 160/95 H 149/88 H Pulse Oximetry 96 94 Intake/Output Intake/Output: Intake & Output 12/05/21 12/06/21 12/07/21 12/08/21 23:59 23:59 23:59 23:59 Intake Total 5080 3440 250 Output Total 1970 2250 800 Balance 3110 1190 -550 Meds/Results Medications: Active Medications Generic Name Dose Route Start Last Admin Trade Name Freq PRN Reason Stop Dose Admin Acetaminophen 650 mg 12/04/21 18:02 Acetaminophen 325 Mg Tablet PO Q6H PRN Mild Pain (1-3) or Fever Bisacodyl 5 mg 12/04/21 20:35 Bisacodyl 5 Mg Tablet Ec PO QPM PRN Constipation 1st use Diphenhydramine HCl 25 mg 12/04/21 17:32 12/05/21 15:24 Diphenhydramine Hcl Inj 50 Mg/Ml Vial IV PUSH 25 mg Q6H PRN Administration Itching Docusate Sodium 100 mg 12/04/21 21:00 12/07/21 20:30 Docusate Sodium 100 Mg Capsule PO 100 mg Q12HR MARISELA Administration Enoxaparin Sodium 40 mg 12/05/21 09:00 12/07/21 08:15 Enoxaparin 40 Mg/0.4 Ml Syringe SUB-Q 40 mg DAILY MARISELA Administration Famotidine 20 mg 12/04/21 21:00 12/07/21 20:30 Famotidine 20 Mg/2 Ml Vial IV PUSH 20 mg Q12HR MARISELA Administration Gabapentin 300 mg
[2021-12-08] MEDS: KCL 40 MEQ/D5/0.9% SOD CHL 1,000 ML 80 ML IV CONT (08:21)
[2021-12-08] MEDS: DOCUSATE SODIUM 100 MG CAPSULE PO ×2 (08:25→20:17)
[2021-12-08] MEDS: ENOXAPARIN 40 MG/0.4 ML SYRINGE SUB-Q (08:26)
[2021-12-08] MEDS: LIDOCAINE 5% PATCH 2 PATCH TRANSDERM (08:26)
[2021-12-08] MEDS: GABAPENTIN 300 MG CAPSULE PO ×3 (08:26→16:21)
[2021-12-08] MEDS: FAMOTIDINE 20 MG/2 ML VIAL IV PUSH ×2 (08:26→20:18)
--- NOTE | 2021-12-08 09:45 | PM.PNGS ---
Progress Note: A&P Assessment and Plan (1) Post-ERCP acute pancreatitis: Code(s): K91.89 - Other postprocedural complications and disorders of digestive system; K85.90 - Acute pancreatitis without necrosis or infection, unspecified Status: Acute Assessment and Plan: Lipase 1832 this morning. His increase in abdominal pain was likely related to pancreatitis following the ERCP. Clinically improving and abdominal pain is much better today. Will defer diet advancement to GI. Currently on clear liquids. Continue IV fluids. Monitor labs. (2) Bile leak, postoperative: Code(s): K91.89 - Other postprocedural complications and disorders of digestive system; K83.8 - Other specified diseases of biliary tract Status: Acute Assessment and Plan: S/p RUQ perc drain placement on 12/04 and ERCP 12/06 with bile leak noted in proximal CBD and a plastic stent placed. Perc drain with 10 cc output yesterday during day shift and no output overnight. Will continue to monitor the drain for any output while inpatient in case there is any bile leakage from the ducts of luschka. Will plan to remove the drain if he continues to have no output over the next few days. (3) Opioid dependence with current use: Code(s): F11.20 - Opioid dependence, uncomplicated Status: Chronic Assessment and Plan: Still getting the oxycodone Q4H PRN with IV Morphine for breakthrough pain, which seems to be controlling his pain. I instructed the patient to start trying to wean off the Morphine as his pain is improving and try to stick with the oxycodone if this is controlling his pain alone. (4) History of laparoscopic cholecystectomy: Code(s): Z90.49 - Acquired absence of other specified parts of digestive tract Status: Chronic Assessment and Plan: POD#7 with postop bile leak s/p ERCP with stent. See plan above. (5) Cholecystitis, acute with cholelithiasis: Onset Date: ~11/2021 Qualifiers: Biliary obstruction: with biliary obstruction Qualified Code(s): K80.01 - Calculus of gallbladder with acute cholecystitis with obstruction Code(s): K80.00 - Calculus of gallbladder with acute cholecystitis without obstruction Status: Resolved (6) Chronic back pain: Onset Date: Unknown Qualifiers: Back pain location: low back pain Back pain laterality: unspecified Sciatica presence: unspecified whether sciatica present Qualified Code(s): M54.50 - Low back pain, unspecified; G89.29 - Other chronic pain Code(s): M54.9 - Dorsalgia, unspecified; G89.29 - Other chronic pain Status: Chronic (7) Anxiety: Code(s): F41.9 - Anxiety disorder, unspecified Status: Acute Assessment and Plan: P.r.n. lorazepam Additional Plan I have discussed the patient's case and plan of care with Dr. Miller. Subjective Subjective Date/Time Seen: 12/08/21 08:45 Patient reports: feels better, pain is less, tolerating liquids well, flatus and afebrile Interval history: Patient seen and examined. He reports feeling better today compared to yesterday. His abdominal pain is less. He still reports upper abdominal pain that is burning in nature. He denies nausea or vomiting. He is still requiring IV Morphine with 2 doses yesterday evening and 2 doses overnight. Review of Systems Review of Systems: All systems reviewed & are unremarkable except as noted in HPI and below Exam Const: General: comfortable, no acute distress and awake Orientation/consciousness: patient oriented x3 GI: Inspection: distended, incision ( incisions dry and glue intact, ecchymosis noted at periumbilical incision) and other (RUQ perc drain with scant bilious output in drainage bag) GI Palp: Yes Soft to palpation, Yes Tenderness to palpation present (GI) (across upper abdomen and near incisions, less tender today), No Guarding due to palpation present (GI) and No Rebound tenderness present Au
[2021-12-08 10:00] VITALS: BP 137/83; PULSE 88; RESP 18; TEMP 36.8; O2SAT 94
--- NOTE | 2021-12-08 13:37 | PC.NURSE ---
India Burton [employer] notified of pt still having pain after prn percocet and prn morphibe given, abd slightly more distended.
[2021-12-08 14:00] VITALS: BP 152/97; PULSE 98; RESP 20; TEMP 37; O2SAT 96
[2021-12-08] MEDS: LORazepam (*CRX) 1 MG TABLET PO ×2 (15:46→20:16)
[2021-12-08] MEDS: BISACODYL 5 MG TABLET EC PO (16:24)
[2021-12-08 18:50] VITALS: BP 129/79; PULSE 100; RESP 20; TEMP 36.7; O2SAT 94
[2021-12-08 20:48] VITALS: BP 130/86; PULSE 97; RESP 18; TEMP 37.2; O2SAT 94
[2021-12-09] MEDS: MORPHINE SULFATE (*CRX) 2 MG/ML INJ IV PUSH ×3 (00:10→09:47)
[2021-12-09 01:53] VITALS: BP 115/78; PULSE 97; RESP 17; TEMP 36.7; O2SAT 93
[2021-12-09] MEDS: oxyCODONE HCL (*CRX) 5 MG TAB IR PO ×3 (03:00→11:29)
[2021-12-09] MEDS: oxyCODONE/ACETAMINOPHEN (*CRX) 5-325 MG TABLET 1 TABLET PO ×3 (03:01→11:29)
[2021-12-09 05:49] VITALS: BP 131/83; PULSE 101; RESP 18; TEMP 36.3; O2SAT 94
[2021-12-09 07:05] LABS: Hematocrit 38.3 % (42.0-52.0); Hemoglobin 12.5 g/dL (14.0-18.0); Mean Corpuscular HGB Conc 32.6 g/dl (32-36); Mean Corpuscular Hemoglobin 28.9 pg (26-34); Mean Corpuscular Volume 88.7 fl (80-100); Mean Platelet Volume 9.5 fl (7.4-10.4); Platelet Count Result 276 k/mm3 (150-375); Red Blood Count 4.32 M/mm3 (4.6-6.20)
[2021-12-09 07:18] LABS: Alanine Aminotransferase 84 U/L (4-50); Albumin Level 3.9 g/dL (3.5-5.1); Alkaline Phosphatase 148 U/L (38-126); Anion Gap 8 mmol/L (8-16); Aspartate Amino Transferase 58 U/L (17-59); Bilirubin,Total 0.6 mg/dL (0.2-1.3); Blood Urea Nitrogen 8 mg/dL (9-20); Calcium 8.4 mg/dL (8.4-10.2); Carbon Dioxide 24 mmol/L (22-30); Chloride 103 mmol/L (98-107); Estimated CRCL calculation 107 ml/min; Estimated Glomerular Filt Rate > 60; Glucose 114 mg/dL (65-110); Lipase 277 U/L (23-300); Potassium 4.5 mmol/L (3.4-5.0); Sodium 135 mmol/L (137-145)
[2021-12-09 07:59] VITALS: BP 131/77; PULSE 86; RESP 14; TEMP 36.6; O2SAT 96
[2021-12-09] MEDS: LIDOCAINE 5% PATCH 2 PATCH TRANSDERM (08:56)
[2021-12-09] MEDS: GABAPENTIN 300 MG CAPSULE PO ×2 (08:58→12:01)
[2021-12-09] MEDS: ENOXAPARIN 40 MG/0.4 ML SYRINGE SUB-Q (08:58)
[2021-12-09] MEDS: DOCUSATE SODIUM 100 MG CAPSULE PO (08:58)
[2021-12-09] MEDS: FAMOTIDINE 20 MG/2 ML VIAL IV PUSH (08:59)
[2021-12-09] MEDS: KCL 40 MEQ/D5/0.9% SOD CHL 1,000 ML 80 ML IV CONT (09:48)
--- NOTE | 2021-12-09 09:51 | WPDGIPROGNO ---
Progress Note: A&P Assessment and Plan (1) Bile leak, postoperative: Code(s): K91.89 - Other postprocedural complications and disorders of digestive system; K83.8 - Other specified diseases of biliary tract Status: Acute Assessment and Plan: treated with ERCP and bile stent placement no more bile in bag- surgery to remove perc catheter soon will need ercp in 8 weeks to remove stent and reassess bile duct (2) Post-ERCP acute pancreatitis: Code(s): K91.89 - Other postprocedural complications and disorders of digestive system; K85.90 - Acute pancreatitis without necrosis or infection, unspecified Status: Acute Assessment and Plan: pain is much better this morning and lipase down to normal will advance diet, probably mild post-ercp pancreatitis but clinically doing better probably can go home today (3) Elevated transaminase level: Code(s): R74.01 - Elevation of levels of liver transaminase levels Status: Acute Assessment and Plan: stable (4) Opioid dependence with current use: Code(s): F11.20 - Opioid dependence, uncomplicated Status: Chronic Assessment and Plan: on chronic pain meds (5) Right upper quadrant abdominal pain: Code(s): R10.11 - Right upper quadrant pain Status: Acute Assessment and Plan: better Subjective Date/time seen: 12/09/21 09:51 Interval history: pain is improved and tolerating diet, he is still using pain meds but normally he does since he has chronic pain syndrome. He has not had really any more drainage in perc catheter Review of Systems Review of Systems: All systems reviewed & are unremarkable except as noted in HPI and below Exam Const: General: comfortable and no acute distress HENMT: General nose exam: Normal nares present Eyes: Sclera: sclerae normal Neck: Neck: supple Resp: Auscultation: clear to auscultation bilaterally Cardio: Rate: regular rate GI: GI Palp: Yes Tenderness to palpation present (GI) (improved, less pain) Auscultation: normal bowel sounds Other: percutaneous drainage in RUQ, no more bile in bag Skin: General skin exam: normal color Neuro: Speech: normal speech Motor exam (neuro): Normal motor muscle tone present throughout Extrem: General: normal to inspection Psych: Mental Status: mental status grossly normal Objective Data Vital Signs Vital Signs: Vital Signs - 24 hr 12/08/21 10:00 12/08/21 14:00 12/08/21 18:50 Temperature 98.3 F 98.6 F 98.0 F Pulse Rate 88 98 100 Respiratory Rate 18 20 20 Blood Pressure 137/83 152/97 H 129/79 Pulse Oximetry 94 96 94 12/08/21 20:48 12/09/21 01:53 12/09/21 05:49 Temperature 98.9 F 98.0 F 97.4 F L Pulse Rate 97 97 101 H Respiratory Rate 18 17 18 Blood Pressure 130/86 115/78 131/83 Pulse Oximetry 94 93 94 Intake/Output Intake/Output: Intake & Output 12/06/21 12/07/21 12/08/21 12/09/21 23:59 23:59 23:59 23:59 Intake Total 5080 3440 2950 1540 Output Total 1970 2250 2100 820 Balance 3110 1190 850 720 Meds/Results Medications: Active Medications Generic Name Dose Route Start Last Admin Trade Name Freq PRN Reason Stop Dose Admin Acetaminophen 650 mg 12/04/21 18:02 Acetaminophen 325 Mg Tablet PO Q6H PRN Mild Pain (1-3) or Fever Bisacodyl 5 mg 12/04/21 20:35 12/08/21 16:24 Bisacodyl 5 Mg Tablet Ec PO 5 mg QPM PRN Administration Constipation 1st use Diphenhydramine HCl 25 mg 12/04/21 17:32 12/05/21 15:24 Diphenhydramine Hcl Inj 50 Mg/Ml Vial IV PUSH 25 mg Q6H PRN Administration Itching Docusate Sodium 100 mg 12/04/21 21:00 12/09/21 08:58 Docusate Sodium 100 Mg Capsule PO 100 mg Q12HR MARISELA Administration Enoxaparin Sodium 40 mg 12/05/21 09:00 12/09/21 08:58 Enoxaparin 40 Mg/0.4 Ml Syringe SUB-Q 40 mg DAILY MARISELA Administration Famotidine 20 mg 12/04/21 21:00 12/09/21 08:59 Famotidine 20 Mg/2 Ml Vial IV PUSH 20 mg Q12
--- NOTE | 2021-12-09 11:40 | PM.PNGS ---
Progress Note: A&P Assessment and Plan (1) Post-ERCP acute pancreatitis: Code(s): K91.89 - Other postprocedural complications and disorders of digestive system; K85.90 - Acute pancreatitis without necrosis or infection, unspecified Status: Acute Assessment and Plan: Resolving. Lipase normal this morning. Clinically improving. Pain much improved. Will discontinue IV Morphine and continue his oxycodone for pain control that he would be taking once going home. Agree with advancing to a low fat diet for lunch. (2) Bile leak, postoperative: Code(s): K91.89 - Other postprocedural complications and disorders of digestive system; K83.8 - Other specified diseases of biliary tract Status: Acute Assessment and Plan: S/p RUQ perc drain placement on 12/04 and ERCP 12/06 with bile leak noted in proximal CBD and a plastic stent placed. Minimal output from perc drain over the past 24 hours. Percutaneous drain was removed at the bedside today, patient tolerated this well. Okay from our standpoint to discharge the patient later today if he continues to tolerate a low fat diet. --- Follow-up with Dr. Miller in the office in 2 weeks (the week of 12/20/21). Follow-up with GI as recommended for stent removal. (3) Opioid dependence with current use: Code(s): F11.20 - Opioid dependence, uncomplicated Status: Chronic Assessment and Plan: Stopped IV Morphine. Continue oxycodone at current dose. If his pain continues to be controlled this afternoon, then he could be discharged on his home oxycodone. (4) History of laparoscopic cholecystectomy: Code(s): Z90.49 - Acquired absence of other specified parts of digestive tract Status: Chronic Assessment and Plan: POD#8 with postop bile leak s/p ERCP with stent. See plan above. (5) Cholecystitis, acute with cholelithiasis: Onset Date: ~11/2021 Qualifiers: Biliary obstruction: with biliary obstruction Qualified Code(s): K80.01 - Calculus of gallbladder with acute cholecystitis with obstruction Code(s): K80.00 - Calculus of gallbladder with acute cholecystitis without obstruction Status: Resolved (6) Chronic back pain: Onset Date: Unknown Qualifiers: Back pain location: low back pain Back pain laterality: unspecified Sciatica presence: unspecified whether sciatica present Qualified Code(s): M54.50 - Low back pain, unspecified; G89.29 - Other chronic pain Code(s): M54.9 - Dorsalgia, unspecified; G89.29 - Other chronic pain Status: Chronic (7) Anxiety: Code(s): F41.9 - Anxiety disorder, unspecified Status: Acute Additional Plan I have discussed the patient's case and plan of care with Dr. Miller. Subjective Subjective Date/Time Seen: 12/09/21 11:40 Post Op day: 8 Patient reports: no new complaints, feels better, pain is less, tolerating liquids well, flatus and afebrile Interval history: Patient seen and examined. He reports feeling much better today. He now is only reporting expected discomfort at his incisions, along with his chronic back and leg pain that he experiences at home. He feels his abdominal pain that he has been experiencing the last two days has resolved. No nausea or vomiting. He reports tolerating full liquids. He showered this morning. Review of Systems Review of Systems: All systems reviewed & are unremarkable except as noted in HPI and below Exam Const: General: comfortable, no acute distress and awake Orientation/consciousness: patient oriented x3 GI: Inspection: distended and incision ( incisions dry and glue intact, ecchymosis noted at periumbilical incision) GI Palp: Yes Soft to palpation, Yes Tenderness to palpation present (GI) (incisional) and No Guarding due to palpation present (GI) Auscultation: normal bowel sounds Other: RUQ perc drain with scant bilious drainage. Removed dressing, removed suture, and pulled the perc drain at
--- NOTE | 2021-12-09 12:45 | PC.NURSE ---
On 12/09/21, the student, [Urbano Marie], provided care and completed [facility] documentation on this patient. I have reviewed the student's documentation and agree with the findings.
--- NOTE | 2021-12-09 13:29 | PM.IMPN ---
Progress Note: A&P Assessment and Plan (1) Bile leak, postoperative: Code(s): K91.89 - Other postprocedural complications and disorders of digestive system; K83.8 - Other specified diseases of biliary tract Status: Acute (2) History of laparoscopic cholecystectomy: Code(s): Z90.49 - Acquired absence of other specified parts of digestive tract Status: Chronic (3) Right upper quadrant abdominal pain: Code(s): R10.11 - Right upper quadrant pain Status: Acute (4) Opioid dependence with current use: Code(s): F11.20 - Opioid dependence, uncomplicated Status: Chronic (5) Herniation of intervertebral disc between L5 and S1: Code(s): M51.27 - Other intervertebral disc displacement, lumbosacral region Status: Acute (6) Anxiety: Code(s): F41.9 - Anxiety disorder, unspecified Status: Acute (7) Constipation: Code(s): K59.00 - Constipation, unspecified Status: Acute (8) Acquired foot drop: Code(s): M21.379 - Foot drop, unspecified foot Status: Acute (9) Does mobilize using orthotic device: Code(s): Z99.89 - Dependence on other enabling machines and devices Status: Acute Additional Plan 51-year-old gentleman admitted pod 3 from cholecystectomy with presumed biliary leak. Consult has been requested for management of acute on chronic pain in chronic opioid dependent patient. Admitted to med surg Status post CT-guided right upper quadrant abscess drainage Currently NPO except for ice chips and meds with sips Zosyn continued Will initiate oxycodone 10/325 q.4 hours p.r.n. for pain Will initiate gabapentin 300 mg t.i.d. p.r.n. for neuropathic pain of left lower extremity Will initiate lidocaine patches topical treatment of back pain and left lower extremity pain Will continue p.o. Ativan 1 mg t.i.d. p.r.n. for agitation anxiety Will decrease morphine to 2 mg IV q.4 hours p.r.n. for breakthrough pain Colace will be ordered b.i.d. scheduled Dulcolax will be will ordered p.r.n. as first-line agent for constipation Lactulose will be ordered p.r.n. as second-line agent for constipation PT OT will be ordered to further assess physical deficits and provide recommendations May need midline ordered for administration of antibiotic IV fluids and pain medications Defer to surgeon if midline appropriate for this patient Will continue to monitor opiate usage requirements for pain control and adjust accordingly down titrating as possible. Thank you for this consultation and allowing us to participate in the care your patient. 12/05/21 pain control not achieved yet will allow a few more doses of scheduled medications and reassess cont current care lactulose if unable to produce BM RN does have functioning peripheral line in R arm drain w bilious contents cont supportive care PT/OT pending 12/06/21 ERCP today currently NPO Dilaudid per surgeon cont current care 12/07/2021 interval history: patient had a ERCP yesterday and stents were placed to stop the by bile leakage in today his drain is empty, patient does complain of abdominal pain and felt nauseated, patient is seen by surgery service receiving pain medication, patient seen by GI recommending to repeat the ERCP in 8 weeks to assess the patency of the stent, patient remains clinically stable will continue present management. 12/08/2021 interval history: patient had a ERCP 12/06/2021 and stents were placed to stop the bile leakage in today his drain is empty, patient does complain of abdominal pain and felt nauseated, patient is seen by surgery suspected pancreatitis s/p ERCP as his lipase are elevated, receiving pain medication, will continue to monitor, patient seen by GI recommending to repeat the ERCP in 8 weeks to assess the patency of the stent, patient remains clinically stable will continue present management. 12/09/2021 interval history: patient had a ERCP 12/06/2021 and s
--- NOTE | 2021-12-09 14:09 | PM.DS ---
DS: Admitting Diagnosis Discharge Date 12/09/21 Admitting Diagnosis RUQ abdominal pain S/p laparoscopic cholecystectomy Chronic opioid use due to chronic back and leg pain Anxiety DS: Discharge Diagnosis Discharge Diagnosis (1) Bile leak, postoperative: Code(s): K91.89 - Other postprocedural complications and disorders of digestive system; K83.8 - Other specified diseases of biliary tract Status: Acute (2) Post-ERCP acute pancreatitis: Code(s): K91.89 - Other postprocedural complications and disorders of digestive system; K85.90 - Acute pancreatitis without necrosis or infection, unspecified Status: Acute (3) History of laparoscopic cholecystectomy: Code(s): Z90.49 - Acquired absence of other specified parts of digestive tract Status: Chronic (4) Opioid dependence with current use: Code(s): F11.20 - Opioid dependence, uncomplicated Status: Chronic (5) Anxiety: Code(s): F41.9 - Anxiety disorder, unspecified Status: Acute DS: Summary Hospital Course Reason for hospitalization: This is a 51 yo M who presented to the ER with abdominal pain initially on 12/01/21 with evaluation showing evidence of acute cholecystitis with gallstones and was taken later that day for a difficult laparoscopic cholecystectomy by Dr. Miller. IOC was performed and was normal. Pathology showed acute and chronic cholecystitis with gallstones. He was discharged home POD1 and doing well. While at home, he developed RUQ abdominal pain that brought him back to the ER on POD3, 12/04/21. Work-up in the ER showed a WBC count of 11K, otherwise labs were unremarkable, and his CT scan showed a fluid collection in the gallbladder fossa concerning for a bile leak. He was admitted to our service in this setting for post-op pain and evaluation of possible bile leak. Hospital Course: The patient was admitted and underwent a percutaneous drainage of the fluid collection in Radiology later that day, 12/04/21. The drain was left in place and appeared to be draining bile. These final cultures showed no growth of organisms. Hospitalist was consulted for medical management of his chronic opioid use with acute and chronic pain. GI was also consulted for the suspicion of a post-operative bile leak. The patient was taken for an ERCP with sphincterotomy by Dr. Tinoco on 12/06/21 and was found to have bile leaking from the proximal common bile duct. He placed a plastic biliary stent. The first day after the ERCP, the patient was complaining of worsening upper abdominal pain. He was found to have an elevated lipase and it was suspected that he had post-ERCP pancreatitis. He was treated with IV fluids, analgesics, bowel rest, and monitoring. The following day, the patient's pain had improved and his lipase was down to normal. He was advanced on his diet to full liquids. His percutaneous drain was monitored during this time as well until there was nearly no output. Today the patient was seen and the percutaneous drain was removed at the bedside. His pain continued to improve and we stopped IV narcotics. He was able to tolerate his chronic and post-operative pain on his oral oxycodone. His diet was advanced to a low-fat diet, which he tolerated well. Labs showed a WBC did go up to 15K but he had no other signs of infection. He is stable for discharge today. Will need to follow-up with GI in 8 weeks for stent removal. Status at Discharge Functional status at discharge: independent ambulation Overall status at discharge: patient is progressing back to baseline Time Spent with Patient Time attestation: Total time spent providing and/or coordinating discharge services: Time spent: Greater than 30 minutes DS: Data Data Completed and Pending Labs on day of discharge: Labs from last 24 hours 12/09/21 12/09/21 06:54 06:54 WBC 15.0 H RBC 4.32 L Hgb 12.5 L Hct 38.3 L MCV 88.7 MCH 28.9 MCHC 32.6 RDW 13.0 Plt Count 276 MPV
== END 2021-12-09 14:49 | disposition home or self-care (01) | DRG 393 ==
LOC: ANHED 13:26 → ANH2MED 13:46
PROVIDERS: Internal Medicine Gastroenterology; Surgery; Admitting Provider Surgery; Emergency Provider Emergency Medicine; Visit Provider Nurse Practitioner Family
PROC: 0F758DZ Dilation of Right Hepatic Duct with Intraluminal Device, Via Natural or Artificial Opening Endoscopic (ICD-10-PCS; CPT 43260; principal; 2021-12-06 15:45)
DX: K91.89 Other postprocedural complications and disorders of digestive system (principal); K83.2 Perforation of bile duct; K85.90 Acute pancreatitis without necrosis or infection, unspecified; Z90.49 Acquired absence of other specified parts of digestive tract; R74.01 Elevation of levels of liver transaminase levels; F11.90 Opioid use, unspecified, uncomplicated; F41.9 Anxiety disorder, unspecified; G89.29 Other chronic pain; H26.9 Unspecified cataract; K59.00 Constipation, unspecified; M54.9 Dorsalgia, unspecified; M21.372 Foot drop, left foot; M51.27 Other intervertebral disc displacement, lumbosacral region; R10.11 Right upper quadrant pain; Z79.82 Long term (current) use of aspirin; Z88.6 Allergy status to analgesic agent; Z99.89 Dependence on other enabling machines and devices
CPT/HCPCS: 36415; 51701; 71046; 74177; 74300; 74329; 75989; 76705; 80053; 81001; 83690; 85025; 85027; 87070; 87075; 87205; 88304; 96361; 96365; 96366; 96367; 96372; 96375; 96376; 97161; 97165; 99285; A9270; C1713; C1729; C1769; C1876; C9803; G0378; J0131; J1100; J1170; J1200; J1650; J2060; J2250; J2270; J2370; J2405; J2543; J2704; J2710; J3010; J3480; J7030; J7120; Q9966; Q9967; U0003; U0005

== ENCOUNTER 2022-03-22 07:05 | Outpatient (CLI) | payer MEDICARE, MEDICAID, SELFPAY ==
[2022-03-22 08:18] LABS: Hematocrit 42.2 % (42.0-52.0); Hemoglobin 13.5 g/dL (14.0-18.0); Mean Corpuscular Volume 87.6 fl (80-100); Mean Platelet Volume 10.5 fl (7.4-10.4); Platelet Count Result 263 k/mm3 (150-375); Red Blood Count 4.82 M/mm3 (4.6-6.20); Red Cell Distribution Width 13.8 % (11.5-14.5); White Blood Count 8.4 K/mm3 (4.5-10.0)
[2022-03-22 08:28] LABS: Alanine Aminotransferase 28 U/L (6-50); Albumin Level 4.7 g/dL (3.5-5.1); Alkaline Phosphatase 102 U/L (38-126); Anion Gap 9 mmol/L (8-16); Aspartate Amino Transferase 23 U/L (17-59); Bilirubin,Total 0.6 mg/dL (0.2-1.3); Blood Urea Nitrogen 19 mg/dL (9-20); Calcium 8.9 mg/dL (8.4-10.2); Carbon Dioxide 24 mmol/L (22-30); Chloride 109 mmol/L (98-107); Cholesterol 220 mg/dL (0-200); Estimated Glomerular Filt Rate > 60; Glucose 101 mg/dL (65-110); HDL Direct 52 mg/dL; Potassium 4.2 mmol/L (3.4-5.0); Sodium 142 mmol/L (137-145); Triglycerides 267 mg/dL (<150)
[2022-03-22 08:39] LABS: LDL Cholesterol Direct 100 mg/dL
[2022-03-22 08:54] LABS: Prostate Specific Antigen 0.8 ng/mL (< OR = 4.0)
== END 2022-03-22 07:06 | disposition home or self-care (01) ==
LOC: ANHLAB 07:13
PROVIDERS: PCP Family Medicine Adolescent Medicine; Visit Provider Family Medicine Adolescent Medicine
DX: Z12.5 Encounter for screening for malignant neoplasm of prostate (principal); G47.00 Insomnia, unspecified; M79.2 Neuralgia and neuritis, unspecified; Z13.220 Encounter for screening for lipoid disorders; R74.01 Elevation of levels of liver transaminase levels
CPT/HCPCS: 36415; 80053; 80061; 84153; 85027; G0103

== ENCOUNTER 2022-03-25 00:46 | Day surgery (SDC) | payer MEDICARE, MEDICAID, SELFPAY ==
[2022-03-14 14:01] VITALS: BMI 36.8
[2022-03-25] VITALS (8 sets, daily range): BP systolic 100–159; BP diastolic 67–100; PULSE 61–87; RESP 15–20; TEMP 36.8–37.1; O2SAT 96–100; BMI 40.1
--- NOTE | ~2022-03-25 | XR_ITS ---
EXAMINATION: XR ERCP DATE: 03/25/2022 13:01 INDICATION: Choledocholithiasis TECHNIQUE: Four intraoperative fluoroscopic images obtained during endoscopic retrograde cholangiopan creatography (ERCP) are submitted for review. Total fluoroscopic time was 60 seconds. COMPARISON: 12/06/2021 FINDINGS: Fluoroscopic images demonstrate a normal caliber common bile duct. Cholecystectomy clips ar e noted. IMPRESSION: 1. Normal-appearing common bile duct. Please refer to the ERCP procedure note for additional details. Reviewed, dictated and finalized at location F. IMPRESSION: 1. Normal-appearing common bile duct. Please refer to the ERCP procedure note f or additional details.
--- NOTE | 2022-03-25 12:05 | WPDANESEPPF ---
Anes - Initial Pre Proc Eval Procedure: Operation Date: 03/25/22 14:15 Proposed Procedures p Endoscopic Retro Cholangiopancreatogram/Stent Removal - Roe Tinoco MD Date/Time: 03/25/22 12:05 Surgeon: Roe Tinoco MD Pre Op Diagnosis: acute pancreatitis, disease of digestive system Patient Data Age: 51 Gender: M Height: 1.75 m Weight: 123.2 kg Last Vital Signs Temp 98.2 F 03/25/22 11:55 Pulse 77 03/25/22 11:55 Resp 18 03/25/22 11:55 BP 159/100 H 03/25/22 11:55 Pulse Ox 96 03/25/22 11:55 O2 Del Method Room Air 03/25/22 11:55 Allergies Allergy/AdvReac Type Severity Reaction Status Date / Time ibuprofen Allergy Severe Swelling Verified 03/25/22 11:52 duloxetine Allergy Unknown Verified 03/25/22 11:52 naproxen Allergy Unknown Verified 03/25/22 11:52 Home Medications Medication Instructions Recorded Confirmed Type aspirin 81 mg tablet,delayed 81 mg PO DAILY 02/09/21 03/25/22 History release sertraline 100 mg tablet 100 mg PO DAILY #30 tabs 01/27/22 03/25/22 Rx buspirone 15 mg tablet 15 mg PO BID #60 tabs 02/08/22 03/25/22 Rx oxycodone-acetaminophen 10 mg-325 1 tablet PO Q6H PRN pain #120 tabs 03/22/22 03/25/22 Rx mg tablet quetiapine 50 mg tablet 50 mg PO QHS #30 tabs 03/22/22 03/25/22 Rx Patient hx anesthesia problems: none Family hx anesthesia problems: none Results Review: All pre-operative results and documents have been reviewed as part of the pre-operative evaluation. [facility] Past Medical History Medical History (Updated 01/27/22 @ 16:48 by Wil Lopez MD) Acquired foot drop Anxiety Blurred vision Cataract (~2012) Cataracts, bilateral Cholelithiasis with acute on chronic cholecystitis Chronic back pain (Unknown) Elevated transaminase level Herniation of intervertebral disc between L5 and S1 Opioid dependence with current use Post-ERCP acute pancreatitis Surgical History Surgical History (Updated 01/27/22 @ 16:20 by Wil Lopez MD) H/O knee surgery (~1994) H/O knee surgery (~2012) History of ankle surgery (~1996) History of appendectomy (~1979) History of cholecystectomy 12/14 Family History Family History Father Cholecystitis with cholelithiasis Mother Cholecystitis with cholelithiasis Mother Family history of thyroid disease Father Family history of type 2 diabetes mellitus Other Cerebrovascular accident Diabetes mellitus Family history of alcoholism Hypertension Social History Social History (Updated 01/27/22 @ 15:40 by Clarisse Steele MA) Social History: Patient Drinks 1 can of soda daily. 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 Gender identity (if verbalized by the patient): Male Spiritual care concerns: No Agree to blood products: Yes Anes - Eval Final PreProcedure Day of Procedure 03/25/22 12:05 Patient weight: morbidly obese Heart: regular rate and rhythm Lungs: clear to auscultation Airway: Mallampati scale class II Neurological: alert and oriented Last oral intake: >/= 8 hours ASA classification: III Emergent: no Anesthetic plan: proceed Anesthesia type and monitoring: general GIVS and standard monitoring Results Review: All pre-operative results and documents have been reviewed as part of the pre-operative evaluation. Informed Consent: The patient's anesthetic plan and its attendant risks and benefits were discussed with the patient/family/POA. Questions were solicited and answers provided to the satisfaction of the patient/family/POA.
[2022-03-25] MEDS: LACTATED RINGERS 1,000 ML 150 ML IV CONT (12:06)
--- NOTE | 2022-03-25 12:32 | PM.HPGS ---
History of Present Illness History of Present Illness Consent: Risks, benefits, and alternatives have been discussed and questions answered. Patient agrees to proceed with procedure. Chief complaint: acute pancreatitis, disease of digestive system Narrative: Leia Jimenez is a 51 year old male with bile leak after cholecystectomy treated with ercp and stent placement, he is asymptomatic now with normal recent lft's. Here to remover stent Review of Systems Constitutional: Constitutional: Denies headache(s) and Denies weakness Eyes: Eyes: Denies blurry vision ENT: Reports Normal hearing present, Denies headache(s) and Denies neck pain Cardiovascular: Cardiovascular: Denies chest pain and Denies dyspnea Respiratory: Respiratory: Denies dyspnea Gastrointestinal: Gastrointestinal: Reports no additional gastrointestinal complaints Genitourinary: Genitourinary: Denies dysuria Musculoskeletal: Musculoskeletal: Denies neck pain Integumentary/Breasts: Skin/Breast: Denies dry skin Neurologic: Reports Normal hearing present, Denies headache(s) and Denies weakness Psychiatric: Psychiatric: Denies anxiety Endocrine: Endocrine: Denies change in body appearance Hematologic/Lymphatic: Hematologic/Lymphatic: Denies easy bleeding Allergic/Immunologic: Allergic/Immunologic: Denies urticaria PMFSH Past Medical History Medical History (Updated 01/27/22 @ 16:48 by Wil Lopez MD) Acquired foot drop Anxiety Blurred vision Cataract (~2012) Cataracts, bilateral Cholelithiasis with acute on chronic cholecystitis Chronic back pain (Unknown) Elevated transaminase level Herniation of intervertebral disc between L5 and S1 Opioid dependence with current use Post-ERCP acute pancreatitis Surgical History Surgical History (Updated 01/27/22 @ 16:20 by Wil Lopez MD) H/O knee surgery (~1994) H/O knee surgery (~2012) History of ankle surgery (~1996) History of appendectomy (~1979) History of cholecystectomy 12/14 Family History Family History Father Cholecystitis with cholelithiasis Mother Cholecystitis with cholelithiasis Mother Family history of thyroid disease Father Family history of type 2 diabetes mellitus Other Cerebrovascular accident Diabetes mellitus Family history of alcoholism Hypertension Social History Social History (Updated 01/27/22 @ 15:40 by Clarisse Steele MA) Social History: Patient Drinks 1 can of soda daily. 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 Gender identity (if verbalized by the patient): Male Spiritual care concerns: No Agree to blood products: Yes Meds Home Medications and Allergies Home Medications Medication Instructions Recorded Confirmed Type aspirin 81 mg tablet,delayed 81 mg PO DAILY 02/09/21 03/25/22 History release sertraline 100 mg tablet 100 mg PO DAILY #30 tabs 01/27/22 03/25/22 Rx buspirone 15 mg tablet 15 mg PO BID #60 tabs 02/08/22 03/25/22 Rx oxycodone-acetaminophen 10 mg-325 1 tablet PO Q6H PRN pain #120 tabs 03/22/22 03/25/22 Rx mg tablet quetiapine 50 mg tablet 50 mg PO QHS #30 tabs 03/22/22 03/25/22 Rx Allergies Allergy/AdvReac Type Severity Reaction Status Date / Time ibuprofen Allergy Severe Swelling Verified 03/25/22 11:52 duloxetine Allergy Unknown Verified 03/25/22 11:52 naproxen Allergy Unknown Verified 03/25/22 11:52 Vital Signs Vital Signs - 24 hr 03/25/22 11:55 Temperature 98.2 F Pulse Rate 77 Respiratory Rate 18 Blood Pressure 159/100 H Pulse Oximetry 96 Oxygen Delivery Room Air Exam Const: General: comfortable and no
--- NOTE | 2022-03-25 13:04 | SUR.PHASEII ---
Breath sounds clear bilaterally.
== END 2022-03-25 14:11 | disposition home or self-care (01) ==
PROVIDERS: PCP Family Medicine Adolescent Medicine; Visit Provider Internal Medicine Gastroenterology
PROC: (CPT 43260; principal; 2022-03-25 14:15)
DX: Z46.59 Encounter for fitting and adjustment of other gastrointestinal appliance and device (principal); K91.89 Other postprocedural complications and disorders of digestive system; F41.9 Anxiety disorder, unspecified; K85.90 Acute pancreatitis without necrosis or infection, unspecified; R74.01 Elevation of levels of liver transaminase levels; Z87.891 Personal history of nicotine dependence; Z79.82 Long term (current) use of aspirin; E66.01 Morbid (severe) obesity due to excess calories; Z68.41 Body mass index [BMI] 40.0-44.9, adult
CPT/HCPCS: 43275; 43264; 74329; J0330; J1100; J2405; J2704; J7120

== ENCOUNTER 2023-04-10 09:56 | Outpatient (CLI) | payer MEDICARE, MEDICAID, SELFPAY ==
[2023-04-10 10:12] LABS: Alanine Aminotransferase 89 U/L (6-50); Albumin Level 4.2 g/dL (3.5-5.1); Alkaline Phosphatase 80 U/L (38-126); Anion Gap 5 mmol/L (8-16); Aspartate Amino Transferase 119 U/L (17-59); Bilirubin,Total 0.3 mg/dL (0.2-1.3); Blood Urea Nitrogen 23 mg/dL (9-20); Calcium 8.8 mg/dL (8.4-10.2); Carbon Dioxide 28 mmol/L (22-30); Chloride 105 mmol/L (98-107); Estimated Glomerular Filt Rate > 60; Glucose 99 mg/dL (65-110); Potassium 4.4 mmol/L (3.4-5.0); Sodium 138 mmol/L (137-145)
[2023-04-10 10:42] LABS: Prostate Specific Antigen 0.3 ng/mL (< OR = 4.0)
[2023-04-10 12:11] LABS: Cholesterol 188 mg/dL (0-200); HDL Direct 46 mg/dL; Triglycerides 331 mg/dL (<150)
[2023-04-10 12:23] LABS: LDL Cholesterol Direct 91 mg/dL
== END 2023-04-10 09:57 | disposition home or self-care (01) ==
PROVIDERS: PCP Family Medicine Adolescent Medicine; Visit Provider Nurse Practitioner Family
DX: F41.1 Generalized anxiety disorder (principal); M54.50 Low back pain, unspecified; G89.29 Other chronic pain; E78.5 Hyperlipidemia, unspecified; Z13.220 Encounter for screening for lipoid disorders; Z12.5 Encounter for screening for malignant neoplasm of prostate
CPT/HCPCS: 36415; 80053; 80061; 82607; 84153; G0103